=== PATIENT | female | born 1960 | race Asian ===

== ENCOUNTER → 2019-04-18 14:14 | Outpatient (CLI) | payer OTHER, SELFPAY ==
--- NOTE | 2019-04-18 | DI.CT.S_ITS ---
PROCEDURE: CT ABDOMEN PELVIS WO CON INDICATIONS: Urinary calculus TECHNIQUE: Noncontrast 5 mm thick sections acquired from the diaphragms to the symphysis. 5 mm thick coronal and sagittal reformats were then performed. For radiation dose reduction, the following was used: automated exposure control, adjustment of mA and/or kV according to patient size. COMPARISON: None. FINDINGS: Image quality: Excellent. Lung bases: Lung bases are clear. Heart size is normal. A peripherally calcified breast implant is noted partially visualized on the right. Only the inferior margin of this prosthesis is present in the apcyx-zx-fucd. Urinary system: Both kidneys are normal in size. No kidney stones on the right and there is only a punctate 1 mm calculus in an anterior calyx of the left mid kidney, nonobstructive. No hydronephrosis or perinephric fat stranding. Both ureters appear non-dilated throughout their expected courses. Bladder wall thickness is normal; no calcified bladder stones. Other solid organs: Liver is normal in size. Gallbladder has been previously resected. Pancreas is normal in contours. Spleen is normal in size. No adrenal nodules. Peritoneum and bowel: Unenhanced bowel loops demonstrate normal wall thickness and caliber. No free fluid or air. Nodes and vessels: No retroperitoneal or mesenteric adenopathy by size criteria. Aorta and inferior vena cava are normal in caliber. Abdominal wall: No ventral hernias. Pelvis: No free pelvic fluid. No inguinal hernias or adenopathy. Bones: No suspicious bony lesions. No vertebral body compression fractures. IMPRESSION: Punctate 1 mm nonobstructive left renal collecting system calculus, or the remainder of the ureters bilaterally and into the bladder no calculus or evidence of urinary tract obstruction is seen. A source of reported right-sided asymmetric pain is not identified. Incidental lobe made of the inferior margin of a right breast prosthesis. No adjacent inflammation is found. Dictated by: Kyler Montemayor M.D. on 04/18/2019 at 17:39 Approved by: Kyler Montemayor M.D. on 04/18/2019 at 17:41
== END ==
PROVIDERS: Visit Provider Urology
DX: N20.9 Urinary calculus, unspecified (principal); Z90.49 Acquired absence of other specified parts of digestive tract; Z98.82 Breast implant status
CPT/HCPCS: 74176

== ENCOUNTER → 2020-12-13 13:11 | Outpatient (CLI) | payer OTHER, SELFPAY ==
--- NOTE | 2020-12-13 | DI.MRI.S_ITS ---
PROCEDURE: MR CERVICAL SPINE WO CON INDICATIONS: Radiculopathy, cervical region TECHNIQUE: Noncontrast sagittal T1 spin echo and T2 fast spin echo, sagittal STIR, foraminal oblique sagittal T2 fast spin echo, and axial gradient echo or T2 fast spin echo through the cervical spine. COMPARISON: None. FINDINGS: Image quality: Excellent. Alignment and Curvature: Loss of normal cervical lordosis is present. Mild, grade 1 retrolisthesis C4 on C5 and C6 on C7. Bone Marrow: Marrow demonstrates normal overall signal. Mild reactive signal within the endplates adjacent to the C3-C4, C4-C5, and C6-C7 intervertebral discs. Spinal Cord: Visualized spinal cord has normal size and signal. No cerebellar tonsillar herniation. Paraspinous Soft Tissues: No paravertebral masses. Prevertebral soft tissues are normal in thickness. C2-C3: Mild disc desiccation and diffuse disc bulge with superimposed small central protrusion. Mild to moderate canal stenosis. Mild bilateral foraminal stenosis. C3-C4: Mild disc height loss and desiccation. Mild diffuse disc bulge. Mild facet and uncovertebral hypertrophy. Moderate canal stenosis. Mild bilateral foraminal stenosis. C4-C5: Moderate disc height loss and desiccation. Mild diffuse disc bulge. Mild facet and uncovertebral hypertrophy bilaterally. Moderate to severe canal stenosis. Minimal anterior cord flattening. Mild bilateral foraminal stenosis. C5-C6: Mild disc height loss and desiccation. Mild diffuse disc bulge. Mild left and moderate right facet and uncovertebral hypertrophy. Moderate canal stenosis. Moderate to severe right and moderate left foraminal stenosis. Mild right C6 nerve root compression. C6-C7: Moderate disc height loss and desiccation. Mild diffuse disc bulge. Moderate facet and uncovertebral hypertrophy bilaterally. Moderate canal stenosis. Severe right and moderate left foraminal stenosis. Right C7 nerve root compression. C7-T1: Mild disc height loss and desiccation. Mild facet and uncovertebral hypertrophy bilaterally. Mild canal stenosis. Mild bilateral foraminal stenosis. IMPRESSION: 1. Multilevel degenerative disc and facet disease, as well as uncovertebral hypertrophy. 2. Multilevel canal stenoses, worst at C4-C5 where there is minimal cord flattening. 3. Multilevel foraminal stenoses, worst at C5-C6 and C6-C7, where there is associated intraforaminal nerve root compression. Recommend correlation with clinical symptoms to ascertain relevance of this finding. Dictated by: Dmitry De León M.D. on 12/13/2020 at 15:24 Approved by: Dimtry De León M.D. on 12/13/2020 at 15:28
== END ==
PROVIDERS: PCP Internal Medicine; Referring Provider Internal Medicine; Visit Provider Internal Medicine
DX: M54.12 Radiculopathy, cervical region (principal); M50.31 Other cervical disc degeneration, high cervical region; M48.02 Spinal stenosis, cervical region
CPT/HCPCS: 72141

== ENCOUNTER → 2020-12-22 11:45 | Outpatient (CLI) | payer OTHER, SELFPAY ==
--- NOTE | 2020-12-22 | DI.MRI.S_ITS ---
PROCEDURE: MR LUMBAR SPINE WO CON INDICATIONS: Spinal stenosis, lumbar region with neurogenic cla TECHNIQUE: Noncontrast sagittal T1 spin echo and T2 fast echo, sagittal STIR, axial T1 and T2 fast spin echo through the lumbar spine. In cases with scoliosis, additional coronal T2 fast spin echo may be performed. COMPARISON: [facility], CT, CT ABDOMEN PELVIS WO CON, 04/18/2019, 14:24. FINDINGS: Image quality: Excellent. Alignment and Curvature: 5 lumbar type vertebral bodies are present by CT. Alignment is normal. Bone Marrow: Marrow is of normal overall signal. No acute vertebral body compression fractures. Minimal reactive signal within the endplates adjacent to the L2-L3, L3-L4, and L4-L5 intervertebral discs. Spinal Cord: Conus medullaris terminates at the upper L2 level. Visualized cord demonstrates normal signal and size. Paraspinous Soft Tissues: No paravertebral masses. T12-L1: Normal appearance. L1-L2: Minimal facet and ligamentum flavum hypertrophy. No significant canal, or foraminal stenosis. L2-L3: Minimal facet and ligamentum flavum hypertrophy. No significant canal stenosis. Mild bilateral foraminal stenosis. L3-L4: Mild disc desiccation and diffuse disc bulge. Mild facet and ligamentum flavum hypertrophy. Mild epidural lipomatosis. Mild canal stenosis. Mild bilateral foraminal stenosis. L4-L5: Mild disc desiccation and diffuse disc bulge. Moderate facet and ligamentum flavum hypertrophy. Mild epidural lipomatosis. Moderate canal stenosis. Mild bilateral foraminal stenosis. L5-S1: Mild disc desiccation and diffuse disc bulge with superimposed left paracentral protrusion. Moderate facet and ligamentum flavum hypertrophy. Moderate canal stenosis. Mild bilateral foraminal stenosis. Mild compression and posterior deviation of the left S1 nerve root within the lateral recess. IMPRESSION: 1. Multilevel degenerative disc and facet disease, as well as ligamentum flavum hypertrophy and epidural lipomatosis. 2. Multilevel canal stenoses, worst at L4-L5 and L5-S1 where there are moderate canal stenosis. 3. Mild compression and posterior deviation of the left S1 nerve root within the lateral recess at L5-S1. Recommend correlation with clinical symptoms to ascertain relevance of this finding. 4. Mild multilevel foraminal stenosis. Dictated by: Dmitry De León M.D. on 12/24/2020 at 9:27 Approved by: Dmitry De León M.D. on 12/24/2020 at 9:30
== END ==
PROVIDERS: PCP Internal Medicine; Referring Provider Physical Medicine & Rehabilitation Pain Medicine; Visit Provider Physical Medicine & Rehabilitation Pain Medicine
DX: M48.062 Spinal stenosis, lumbar region with neurogenic claudication (principal); M48.07 Spinal stenosis, lumbosacral region; M51.36 Other intervertebral disc degeneration, lumbar region; M51.37 Other intervertebral disc degeneration, lumbosacral region; E88.2 Lipomatosis, not elsewhere classified
CPT/HCPCS: 72148

== ENCOUNTER 2021-01-11 14:49 | Emergency (ER) | payer OTHER, SELFPAY ==
[2021-01-11 14:54] VITALS: BP 130/69; PULSE 78; RESP 18; TEMP 36.6; O2SAT 99; BMI 21.9
[2021-01-11] MEDS: ONDANSETRON 4 MG/2 ML INJ IV (15:16)
[2021-01-11 15:35] LABS: Add Manual Diff / Slide Review NO; Basophils Absolute Auto 100 /uL (0-100); Eosinophils Absolute Auto 100 /uL (0-450); Eosinophils Percent Auto 1.4 % (2-4); Hematocrit 36.8 % (36-46); Hemoglobin 12.6 g/dL (12.0-16.0); Lymphocytes Absolute Auto 2600 /uL (1100-4500); Lymphocytes Percent Auto 42.4 % (25-40); Mean Corpuscular HGB Conc 34.2 % (30-36); Mean Corpuscular Hemoglobin 32.3 PG (26-34); Mean Corpuscular Volume 94.4 fL (80-100); Monocytes Absolute Auto 300 /uL (0-900); Monocytes Percent Auto 5.5 % (3-14); Neutrophils Absolute Auto 3100 /uL (1500-7000); Neutrophils Percent Auto 49.7 % (50-75); Platelet Count 255 X10^3/uL (150-400); Red Cell Distribution Width 13.4 % (11.6-14.8); White Blood Cell Count 6.1 X10^3/uL (4.5-11.0)
--- NOTE | 2021-01-11 15:35 | ED.ABDPAIN ---
HPI - Abdominal Pain General Chief Complaint: Abdominal Pain Stated Complaint: STOMACH ISSUES, pain x5 days Time Seen by Provider: 01/11/21 15:34 Source: patient and family () Mode of arrival: Ambulatory Limitations: no limitations History of Present Illness HPI narrative: This is a 60-year-old female comes emergency department with complaint of abdominal discomfort. Patient states she has had about 5 days of abdominal pain. She also noticed some bright red blood in her stool. Patient states she has had this happen before and was told she had internal hemorrhoids so she was not concerned until she began to have periumbilical abdominal discomfort which has been constant without any resolution over the past 5 days. Patient does have a history of reflux and takes Dexilant which is usually helpful. She states she usually gets her reflux symptoms in her chest and about 30 minutes after she eats. She states this is actually not been symptomatic currently. She denies any fevers. She has felt a little clammy she has discomfort and had goose bumps. She has had some mild nausea but no vomiting. She has had normal bowel movements twice tingly she has noted that the stools have been dark but she does not describe them as melanotic. Patient denies any radiation of the pain to her back or elsewhere. She describes it as dull she states it is worse when she eats. She has tried some xiam-bre-hdedmvr medications without improvement including Pepto, her regular Dexilant and a medication from [place] for reflux. Patient states she has had a cholecystectomy and appendectomy. She takes Tricor and dexilant. She had an EGD and colonoscopy in the last year and was told that she had injury to the lining of her stomach and that she would need repeat evaluations as she is high risk to develop cancer. She was also told that she had elevated pancreatic enzymes in the past after having some abdominal discomfort and had imaging but has not had any additional follow up since that time. Related Data Previous Rx's Medication Instructions Recorded hyoscyamine sulfate 0.125 mg PO Q6H PRN #20 tab 01/11/21 sucralfate [Carafate] 1 g PO QAC 28 Days #84 tab 01/11/21 Allergies Allergy/AdvReac Type Severity Reaction Status Date / Time codeine Allergy Verified 01/11/21 14:54 Penicillins Allergy Verified 01/11/21 14:54 Review of Systems Review of Systems ROS Unobtainable: All systems reviewed & are unremarkable except as noted in HPI and below Patient History Surgical History (Updated 01/11/21 @ 16:11 by Vesta Harman DO) Hx of appendectomy Hx of cholecystectomy Social History (Updated 01/11/21 @ 16:11 by Vesta Harman DO) Smoking Status: Never smoker substance use type: does not use Smoking Status: Never smoker Substance Use Type: does not use Exam Narrative Exam Narrative: GENERAL: Alert and oriented x three, well-nourished female in mild distress. HEENT: Head normocephalic, atraumatic, EOMI, pupils reactive, face symmetric, moist mucous membranes NECK: Supple, full range of motion CARDIOVASCULAR: Regular rate and rhythm without murmurs, rubs or gallops. RESPIRATORY: Breath sounds equal bilaterally, no wheezes rales or rhonchi. ABDOMEN: Soft, mild periumbilical tenderness. Normoactive bowel sounds all 4 quadrants. No guarding or rebound, rigidity, no mass, no bruit or pulsatile mass. RN Josy Mcintyre as Senior Account Clerk. [place] negative stool occult, small internal hemorrhoid which is soft and non-tender with no BRB or melena and small amount of brownish stool. Rectum is non-tender on exam as well. : No CVA tenderness EXTREMITIES: Normal range of motion, no clubbing or edema. Neurovascularly intact NEUROLOGICAL: Cranial nerves II through XII grossly intact. Moving all extremities SKIN: Warm, dry, no petechiae, no rashes or lesions. Initial Vital Signs Initial Vital Signs: Vital Signs Temperature 97.9 F 01/11/21 14:54 Pulse Rate 78 01/11/21 14:54 Respiratory Rate 18 01/11/21 14:54 Blood Pressure 130/69 01/11/21 14:54 Pulse Oximetry 99 01/11/21 14:54 Course Orders Ordered: ED Orders 01/11/21 15:15 Complete Blood Count AUTO DIFF Stat Comprehensive Metabolic Panel Stat Lipase Stat Partial Thromboplastin Time Stat Prothrombin Time INR Stat 01/11/21 16:03 CT abdomen pelvis w con Stat Discontinued Medications Ondansetron HCl (Ondansetron 4 Mg/2 Ml Inj) 4 mg IV NOW ONE Stop: 01/11/21 15:04 Last Admin: 01/11/21 15:16 Dose: 4 mg Documented by: MMERKEL Pantoprazole Sodium (Pantoprazole 40 Mg Vial) 80 mg IV NOW ONE Stop: 01/11/21 16:46 Last Admin: 01/11/21 16:56 Dose: 80 mg Documented by: Vital Signs Vital signs: Vital Signs - 8 hr 01/11/21 14:54 Temperature 97.9 F Pulse Rate 78 Respiratory Rate 18 Blood Pressure 130/69 Pulse Oximetry 99 MDM - Abdominal Pain Lab Data Attestation: I reviewed the patient's lab results. Result diagrams: 01/11/21 15:15 01/11/21 15:15 Labs: Lab Results 01/11/21 01/11/21 01/11/21 Range/Units 15:15 15:15 15:15 WBC 6.1 (4.5-11.0) X10^3/uL RBC 3.90 L (4.0-5.2) X10^6/uL Hgb 12.6 (12.0-16.0) g/dL Hct 36.8 (36-46) % MCV 94.4 (80-100) fL MCH 32.3 (26-34) PG MCHC 34.2 (30-36) % RDW 13.4 (11.6-14.8) % Plt Count 255 (150-400) X10^3/uL Neut % (Auto) 49.7 L (50-75) % Lymph % (Auto) 42.4 H (25-40) % [place] % (Auto) 5.5 (3-14) % Eos % (Auto) 1.4 L (2-4) % Baso % (Auto) 1.0 (0-2) % Neut # (Auto) 3100 (0203-9556) /uL Lymph # (Auto) 2600 (2114-9308) /uL [place] # (Auto) 300 (0-900) /uL Eos # (Auto) 100 (0-450) /uL Baso # (Auto) 100 (0-100) /uL PT 10.1 (10.1-12.7) SECONDS INR 0.9 (0.9-1.3) APTT 31 (26.4-36.2) SECONDS Sodium 142 (137-145) mmol/L Potassium 4.0 (3.4-5.1) mmol/L Chloride 109 H (98-107) mmol/L Carbon Dioxide 25 (22-32) mmol/L BUN 16 (7-17) mg/dL Creatinine 0.46 L (0.52-1.04) mg/dL Estimated GFR > 60.0 (>60) mL/min BUN/Creatinine Ratio 34.8 H (6-22) Glucose 111 H (80-110) mg/dL Calcium 9.5 (8.4-10.2) mg/dL Total Bilirubin < 0.1 L (0.2-1.3) mg/dL AST 31 (14-36) IU/L ALT 19 (<35) IU/L Alkaline Phosphatase 56 (38-126) U/L Total Protein 7.2 (6.3-8.2) g/dL Albumin 4.5 (3.5-5.0) g/dL Globulin 2.7 (1.7-4.1) g/dL Albumin/Globulin Ratio 1.7 (1.0-2.8) Lipase 191 (23-300) U/L Point of care testing: Urine Dip Bedside Urine Glucose Negative Bedside Urine Bilirubin - Negative Bedside Urine Ketone - Negative Urine Specific [place] 1.020 Bedside Urine Occult Blood - Negative Bedside Urine pH 6.5 Bedside Urine Protein - Negative Bedside Urine Urobilinogen - Negative Bedside Urine Nitrite - Negative Bedside Urine Leukocytes - Negative Esterase Imaging Data CT scan - abdomen/pelvis: Radiologist's Impression: [address] [id number] Scan ReportSigned Patient: Freddy BroussardMR#: [id number]: [id number]:[id number]/Sex: 60 / FDate of Service: 01/11/21Loc: EDAccession Number: [id number] Procedure: CT abdomen pelvis w con Ordering Provider: Vesta Harman D.O. PROCEDURE: CT ABDOMEN PELVIS W CON INDICATIONS: abd pain, BFB in stool. TECHNIQUE: After the administration of intravenous contrast, 5 mm thick sections acquired from the diaphragm to the symphysis. 5 mm coronal and sagittal reformats were acquired. For radiation dose reduction, the following was used: automated exposure control, adjustment of mA and/or kV according to patient size. COMPARISON: [facility], CT, CT ABDOMEN PELVIS WO CON, 04/18/2019, 14:24. FINDINGS: Image quality: Excellent. ABDOMEN: Lung bases: Lung bases are clear. Heart size is normal. Breast implants. Solid organs: Liver is normal in size and enhancement. Small benign cysts. Gallbladder is surgically absent. Biliary system is non dilated. Pancreas enhances normally. Spleen is normal in size and enhancement. No adrenal nodules. Kidneys demonstrate normal size and enhancement, without hydronephrosis. Small nonobstructing kidney stones bilaterally. Peritoneum and bowel: Stomach is prominent. There is increased conspicuity of the gastric mucosa. No bowel obstruction. The appendix is absent. No free fluid or air. Nodes and vessels: No retroperitoneal or mesenteric adenopathy by size criteria. Aorta and inferior vena cava are normal in size. Miscellaneous: No ventral hernias. PELVIS: Genitourinary: Bladder wall thickness is normal. Adnexal clips. Prominent pelvic veins. Anteverted uterus. Miscellaneous: No inguinal hernias or adenopathy. Bones: No suspicious bony lesions. No vertebral body compression fractures. IMPRESSION: 1. Question of increased rectal mucosal enhancement. This could be seen in proctitis. 2. Gastric mucosal enhancement. Findings concerning for gastritis. 3. No small bowel obstruction. Consider further endoscopic evaluation. Dictated by: Biju Gagnon M.D. on 01/11/2021 at 16:33 Approved by: Biju Gagnon M.D. on 01/11/2021 at 16:42 MDM Narrative Medical decision making narrative: This is a pleasant 60-year-old female with complaint of stomach/abdominal discomfort for the past 5 days. Patient did note some bright red blood several times in the past and has been told she has internal hemorrhoids. Patient labs do not show any major abnormalities today. Her vital signs are stable. Stool occult on digital rectal exam is negative. Patient has 1 small hemorrhoid noted but is not actively bleeding. Patient's CT does show changes to the gastric mucosa as well as to with the rectal mucosa. After further discussion with the patient she has had anal fissures, as well as rectal discomfort intermittently in the past. She has discussed this with gastroenterology but felt very uncomfortable during the discussion which she related there were several different factors causing this. Um we did discuss that she would benefit from follow-up and was given some additional options if she felt more comfortable with a different GI and encouraged to follow up as she could potentially have ulcerative colitis or Crohn's although we discussed there is a wide differential. She has also been told she needs repeat EGDs because of the scarring in her stomach is high risk for cancer. This is more the area that she is having discomfort today so she is given a prescription for Carafate. She has also been taking a medication from [facility] which she has found helpful and the active drug is hyoscyamine. Patient was counseled at length and she feels comfortable with this plan. Discharge Plan Departure Patient Disposition: Home Clinical Impression: Abdominal pain, Proctitis Activity Restrictions/Additional Instructions: Follow up with your physician in the next week for recheck. Call Thursday morning for an appointment. I would recommend follow up detention with gastroenterology for recheck. If you do not have a local implementation project coordinator available, a referral has been included in your paperwork. Discuss your past symptoms including rectal fissures and pain and intermittent diarrhea and the changes noted on your prior EGD, you have some symptoms consistent with ulcerative colitis or crohns and they can more fully evaluate you to decide if you need further workup. Your imaging today shows changes to the rectal mucosa which may be a proctitis and you would likely benefit from repeat colonscopy after your symptoms have improved. There are also changes in the gastric mucosa which may be the same changes seen on your last EGD and should be followed up. Continue your dexilant. Hyoscyamine is the [place] version of the medication you have been taking. You may try carafate as prescribed. This medication helps to protect the lining of the stomach so that it can heal. Please return for fevers greater than 100.4 F, rapidly worsening abdominal, back flank pain, persistent vomiting, worsening black or bloody stools, lightheadedness or passing out, new chest pain or shortness of breath new or concerning symptoms. Prescriptions: New hyoscyamine sulfate 0.125 mg tablet,disintegrating 0.125 mg PO Q6H PRN (Reason: dyspepsia) Qty: 20 RF: 0 sucralfate [Carafate] 1 gram tablet 1 g PO QAC 28 Days Qty: 84 RF: 0 Referrals: Lucita Woodward MD [Non-Staff] - Kandace Groves MD [Primary Care Provider] - Musa Dewey MD [Physician] -
[2021-01-11 15:41] LABS: INR 0.9 (0.9-1.3); Prothrombin Time 10.1 SECONDS (10.1-12.7)
[2021-01-11 15:44] LABS: PTT Partial Thromboplastin Tim 31 SECONDS (26.4-36.2)
[2021-01-11 15:51] LABS: Alanine Aminotransferase 19 IU/L (<35); Albumin 4.5 g/dL (3.5-5.0); Albumin Globulin Ratio 1.7 (1.0-2.8); Alkaline Phosphatase 56 U/L (38-126); Aspartate Aminotransferase 31 IU/L (14-36); BUN Creatinine Ratio 34.8 (6-22); Blood Urea Nitrogen 16 mg/dL (7-17); Calcium 9.5 mg/dL (8.4-10.2); Carbon Dioxide 25 mmol/L (22-32); Chloride 109 mmol/L (98-107); Estimated Glomerular Filt Rate > 60.0 mL/min (>60); Globulin 2.7 g/dL (1.7-4.1); Glucose 111 mg/dL (80-110); HEMOLYSIS < 15 (0-50); Lipase 191 U/L (23-300); Sodium 142 mmol/L (137-145); Total Protein 7.2 g/dL (6.3-8.2)
[2021-01-11 15:52] LABS: Bilirubin Total < 0.1 mg/dL (0.2-1.3)
--- NOTE | 2021-01-11 16:03 | DI.CT.S_ITS ---
PROCEDURE: CT ABDOMEN PELVIS W CON INDICATIONS: abd pain, BFB in stool. TECHNIQUE: After the administration of intravenous contrast, 5 mm thick sections acquired from the diaphragm to the symphysis. 5 mm coronal and sagittal reformats were acquired. For radiation dose reduction, the following was used: automated exposure control, adjustment of mA and/or kV according to patient size. COMPARISON: [facility], CT, CT ABDOMEN PELVIS WO CON, 04/18/2019, 14:24. FINDINGS: Image quality: Excellent. ABDOMEN: Lung bases: Lung bases are clear. Heart size is normal. Breast implants. Solid organs: Liver is normal in size and enhancement. Small benign cysts. Gallbladder is surgically absent. Biliary system is non dilated. Pancreas enhances normally. Spleen is normal in size and enhancement. No adrenal nodules. Kidneys demonstrate normal size and enhancement, without hydronephrosis. Small nonobstructing kidney stones bilaterally. Peritoneum and bowel: Stomach is prominent. There is increased conspicuity of the gastric mucosa. No bowel obstruction. The appendix is absent. No free fluid or air. Nodes and vessels: No retroperitoneal or mesenteric adenopathy by size criteria. Aorta and inferior vena cava are normal in size. Miscellaneous: No ventral hernias. PELVIS: Genitourinary: Bladder wall thickness is normal. Adnexal clips. Prominent pelvic veins. Anteverted uterus. Miscellaneous: No inguinal hernias or adenopathy. Bones: No suspicious bony lesions. No vertebral body compression fractures. IMPRESSION: 1. Question of increased rectal mucosal enhancement. This could be seen in proctitis. 2. Gastric mucosal enhancement. Findings concerning for gastritis. 3. No small bowel obstruction. Consider further endoscopic evaluation. Dictated by: Biju Gagnon M.D. on 01/11/2021 at 16:33 Approved by: Biju aGgnon M.D. on 01/11/2021 at 16:42
[2021-01-11] MEDS: PANTOPRAZOLE 40 MG VIAL 80 MG IV (16:56)
[2021-01-11 17:46] VITALS: BP 122/70; PULSE 70; RESP 15; O2SAT 99
== END 2021-01-11 17:51 | disposition home or self-care (01) ==
PROVIDERS: Emergency Medicine; Emergency Provider Emergency Medicine; PCP Internal Medicine
DX: K62.89 Other specified diseases of anus and rectum (principal); R10.9 Unspecified abdominal pain
CPT/HCPCS: 36415; 74177; 80053; 81003; 83690; 85025; 85610; 85730; 96374; 96375; 99284; C9113; J2405

== ENCOUNTER → 2021-06-25 14:19 | Outpatient (CLI) | payer OTHER, SELFPAY ==
--- NOTE | 2021-06-25 14:20 | DI.MG.S_ITS ---
BILATERAL DIGITAL SCREENING MAMMOGRAM 3D/2D WITH CAD WITH AUGMENTATION: 06/25/2021 CLINICAL: Routine screening. Family history of breast cancer. Comparison is made to exams dated: 05/23/2020 mammogram - [facility], 05/19/2019 mammogram - [facility], and 04/14/2018 mammogram - [facility]. The tissue of both breasts is heterogeneously dense. This may lower the sensitivity of mammography. Current study was also evaluated with a Computer Aided Detection (CAD) system. No significant masses, calcifications, or other findings are seen in either breast. There has been no significant interval change. IMPRESSION: NEGATIVE There is no mammographic evidence of malignancy. A 1 year screening mammogram is recommended. This exam was interpreted at Station ID: [id number]. NOTE: For mammograms, a report in lay terms will be sent to the patient. Approximately 15% of breast malignancies will not be visualized mammographically. In the management of a palpable breast mass, a negative mammogram must not discourage biopsy of a clinically suspicious lesion. Electronically Signed By: Jermaine Goff M.D., jr/wei:06/25/2021 14:54:09 letter sent: Normal Exam ACR BI-RADS Category 1: Negative [id number]
== END ==
PROVIDERS: PCP Internal Medicine; Referring Provider Internal Medicine; Visit Provider Internal Medicine
DX: Z12.31 Encounter for screening mammogram for malignant neoplasm of breast (principal); Z80.3 Family history of malignant neoplasm of breast
CPT/HCPCS: 77063; 77067

== ENCOUNTER 2022-03-16 01:33 | Inpatient (IN) | payer OTHER, SELFPAY ==
[2022-03-16] VITALS (24 sets, daily range): BP systolic 89–136; BP diastolic 41–66; PULSE 56–78; RESP 14–18; TEMP 36.3–37.1; O2SAT 92–99; BMI 21.9
--- NOTE | 2022-03-16 01:59 | DI.CT.S_ITS ---
PROCEDURE: CT KIDNEY URETER BLADDER (KUB) INDICATIONS: R flank pain evl for stone TECHNIQUE: Axial sections were acquired from the lung bases to the pubic symphysis. Coronal and sagittal reformats were performed. For radiation dose reduction, the following was used: automated exposure control, adjustment of mA and/or kV according to patient size. COMPARISON: None. FINDINGS: Image quality: Excellent. Lung bases: Lung bases are clear. Heart size is normal. Solid organs: Liver: The liver has no mass or intrahepatic biliary ductal dilatation. The portal vein and hepatic veins are patent. Biliary: The gallbladder has no gallstones, pericholecystic fluid, gallbladder wall thickening, or surrounding inflammatory change. Pancreas: The pancreas has no mass or ductal dilatation. There is no surrounding inflammation. Spleen: Normal size. There are no masses. Adrenals: No hypertrophy or nodules. Kidneys: There is a nonobstructing calculus at the lower pole of the left kidney. Moderate right sided hydronephrosis. A stone in the right UVJ measures 4 mm. Few punctate nonobstructing right renal calculi are also present No solid mass. No cystic mass. Peritoneum and bowel: The distal esophagus and stomach are normal. The small bowel has a normal caliber and appearance. The terminal ileum is normal. The large bowel has a normal caliber and appearance. The appendix is normal. No free fluid or air. Nodes and vessels: No retroperitoneal or mesenteric adenopathy by size criteria. Aorta and inferior vena cava are normal in size. Miscellaneous: No abdominal wall mass or hernia. PELVIS: Genitourinary: The bladder has no wall thickening or mass. No bladder calcifications. Bones: No suspicious bony lesions. No vertebral body compression fractures. IMPRESSION: 1. Moderate right-sided hydroureteronephrosis with a 4 mm calculus at the right UVJ. 2. Additional nonobstructing renal calculi bilaterally. Comment: Final report is concordant with preliminary interpretation by [facility] Dictated by: Thai Bryan M.D. on 03/16/2022 at 7:40 Approved by: Thai Bryan M.D. on 03/16/2022 at 7:42
[2022-03-16 02:00] LABS: Add Manual Diff / Slide Review NO; Basophils Absolute Auto 100 /uL (0-100); Basophils Percent Auto 1.9 % (0-2); Eosinophils Absolute Auto 100 /uL (0-450); Hematocrit 36.4 % (36-46); Hemoglobin 12.1 g/dL (12.0-16.0); Lymphocytes Absolute Auto 3300 /uL (1100-4500); Lymphocytes Percent Auto 53.6 % (25-40); Mean Corpuscular HGB Conc 33.2 % (30-36); Mean Corpuscular Hemoglobin 31.5 PG (26-34); Mean Corpuscular Volume 94.8 fL (80-100); Monocytes Absolute Auto 500 /uL (0-900); Monocytes Percent Auto 7.6 % (3-14); Neutrophils Absolute Auto 2200 /uL (1500-7000); Neutrophils Percent Auto 34.9 % (50-75); Platelet Count 237 X10^3/uL (150-400); Red Blood Cell Count 3.84 X10^6/uL (4.0-5.2); Red Cell Distribution Width 13.2 % (11.6-14.8); White Blood Cell Count 6.2 X10^3/uL (4.5-11.0)
--- NOTE | 2022-03-16 02:00 | ED_ITS ---
HPI - General Adult <Hubert Schulte DO - Last Filed: 03/16/22 18:58> General Chief complaint: Abdominal Pain Stated complaint: Lower RT. abd.pain Time Seen by Provider: 03/16/22 01:44 Source: patient and family Mode of arrival: Wheelchair Limitations: no limitations History of Present Illness HPI narrative: Patient is a 34-year-old female. Who is here for evaluation of right sided abdomen and flank discomfort. She started have some discomfort last evening before she went to bed but it woke her from sleep. She is never had symptoms like this in the past. Pain has been constant. No change with urination or palpation. Has not had bowel movements the onset of symptoms is also having some nausea and vomiting. Has not tried anything for the symptoms prior to arrival. Related Data Home Medications Medication Instructions Recorded Confirmed allopurinol 100 mg tablet 100 tab PO Q OTHER DAY 03/16/22 03/16/22 dexlansoprazole 60 mg 60 mg PO DAILY 03/16/22 03/16/22 capsule,biphase delayed release (Dexilant) fenofibrate nanocrystallized 48 mg 40 tab PO DAILY 03/16/22 03/16/22 tablet (Tricor) levothyroxine 75 mcg tablet 75 tab PO DAILY 03/16/22 03/16/22 (Synthroid) Allergies Allergy/AdvReac Type Severity Reaction Status Date / Time codeine Allergy Verified 01/11/21 14:54 Penicillins Allergy Verified 01/11/21 14:54 Review of Systems <Hubert Schulte DO - Last Filed: 03/16/22 18:58> Constitutional Constitutional: Denies fever(s) Gastrointestinal Gastrointestinal: Reports system reviewed and no additional complaints, except as documented Genitourinary Genitourinary: Reports system reviewed and no additional complaints, except as documented Musculoskeletal Musculoskeletal: Reports system reviewed and no additional complaints, except as documented Integumentary/Breasts Skin/Breast: Reports system reviewed and no additional complaints, except as documented Hematologic/Lymphatic On Anticoagulants: No Patient History <Hubert Schulte DO - Last Filed: 03/16/22 18:58> Surgical History Hx of appendectomy Hx of cholecystectomy Family History (Updated 03/16/22 @ 14:33 by Rylan Thornton DO) Sister Kidney stone Mother Heart disease Father Parkinson disease Social History household members: spouse Smoking Status: Never smoker substance use type: does not use Smoking Status: Never smoker Substance Use Type: does not use Exam <Hubert Schulte DO - Last Filed: 03/16/22 18:58> Initial Vital Signs Initial Vital Signs: Vital Signs Temperature 97.7 F 03/16/22 01:40 Pulse Rate 67 03/16/22 01:40 Respiratory Rate 17 03/16/22 01:40 Blood Pressure 127/62 03/16/22 01:40 Pulse Oximetry 99 03/16/22 01:40 Oxygen Delivery Method 03/16/22 01:40 Const General: cooperative HENMT Head: normal to inspection Resp Effort & Inspection: normal respiratory effort Cardio Rate: regular rate GI Inspection: normal to inspection Skin General: no rashes or lesions noted Neuro General: patient alert, patient awake and moves all extremities Extrem General: normal to inspection and capillary refill normal Psych Appearance: grossly normal and well kempt <Vesta Harman DO - Last Filed: 03/17/22 12:00> Initial Vital Signs Initial Vital Signs: Vital Signs Temperature 97.7 F 03/16/22 01:40 Pulse Rate 67 03/16/22 01:40 Respiratory Rate 17 03/16/22 01:40 Blood Pressure 127/62 03/16/22 01:40 Pulse Oximetry 99 03/16/22 01:40 Oxygen Delivery Method 03/16/22 01:40 Course <Hubert Schulte DO - Last Filed: 03/16/22 18:58> Orders Ordered: Belladonna Alkaloids/Opium (Belladonna/Opium Suppositories) 1 each CA Q6HR ISABELA Last Admin: 03/17/22 06:17 Dose: 1 each Documented By: Admin: 03/17/22 00:46 Dose: 1 each Documented By: BEVERLY Fenofibrate (Fenofibrate, Micronized 67 Mg Capsule) 67 mg PO DAILY ISABELA Hydromorphone HCl (Hydromorphone 0.5 Mg Inj) 0.5 mg IV Q3H PRN PRN Reason: Pain, Severe (7-10) Last Admin: 03/16/22 11:45 Dose: 0.5 mg Documented By: SUMAN Lactated Ringer's (Lactated Ringers) 1,000 mls @ 100 mls/hr IV CONT ON LICENSE OF [facility] Last Admin: 03/17/22 06:59 Dose: 100 mls/hr Documented By: Infusion: 03/17/22 06:40 Dose: 100 mls/hr Documented By: Admin: 03/16/22 20:40 Dose: 100 mls/hr Documented By: Infusion: 03/16/22 20:03 Dose: 100 mls/hr Documented By: Admin: 03/16/22 10:03 Dose: 100 mls/hr Documented By: SUMAN Ketorolac Tromethamine (Ketorolac 30 Mg/Ml Vial) 30 mg IV Q6H PRN PRN Reason: Pain, Moderate (4-6) Stop: 03/19/22 09:13 Last Admin: 03/16/22 10:28 Dose: 30 mg Documented By: RAMONITA Levothyroxine Sodium (Levothyroxine 75 Mcg Tablet) 75 mcg PO 0600 ON LICENSE OF [facility] Last Admin: 03/17/22 06:18 Dose: 75 mcg Documented By: BEVERLY Metoclopramide HCl (Metoclopramide 10 Mg/2 Ml Inj) 10 mg IV Q6HR PRN PRN Reason: Nausea And Vomiting Ondansetron HCl (Ondansetron 4 Mg/2 Ml Inj) 4 mg IV Q4HR PRN PRN Reason: Nausea And Vomiting Pantoprazole Sodium (Pantoprazole Dr 40 Mg Tablet) 40 mg PO 0700 ON LICENSE OF [facility] Last Admin: 03/17/22 06:18 Dose: 40 mg Documented By: BEVERLY Tamsulosin HCl (Tamsulosin 0.4 Mg Capsule) 0.4 mg PO BEDTIME ON LICENSE OF [facility] Last Admin: 03/16/22 21:59 Dose: 0.4 mg Documented By: BEVERLY Discontinued Medications Acetaminophen (Acetaminophen 1,000 Mg/100 Ml) 0 mg IV NOW ONE Stop: 03/16/22 07:28 Last Admin: 03/16/22 08:27 Dose: 1,000 mg Documented By: KHOI Hydrocodone Bitart/Acetaminophen (Hydrocodone/Acet 5/325 Prepack) 1 bottle MISC SEEINSTR ONE Stop: 03/16/22 07:15 Last Admin: 03/16/22 10:29 Dose: Not Given Documented By: RAMONITA Belladonna Alkaloids/Opium (Belladonna/Opium Suppositories) 1 each CA NOW ONE Stop: 03/16/22 07:26 Last Admin: 03/16/22 08:27 Dose: 1 each Documented By: KHOI Diphenhydramine HCl (Diphenhydramine 50 Mg/Ml Vial) 25 mg IV NOW ONE Stop: 03/16/22 08:54 Last Admin: 03/16/22 09:00 Dose: 25 mg Documented By: KHOI Diphenhydramine HCl (Diphenhydramine 50 Mg/Ml Vial) 25 mg IV Q6HR PRN PRN Reason: Itching Last Admin: 03/16/22 11:45 Dose: 25 mg Documented By: SUMAN Hydromorphone HCl (Hydromorphone 0.5 Mg Inj) 0.5 mg IV NOW ONE Stop: 03/16/22 04:24 Last Admin: 03/16/22 04:26 Dose: 0.5 mg Documented By: RADHA Hydromorphone HCl (Hydromorphone 0.5 Mg Inj) 0.5 mg IV NOW ONE Stop: 03/16/22 06:45 Last Admin: 03/16/22 06:49 Dose: 0.5 mg Documented By: RADHA Sodium Chloride (Normal Saline 0.9%) 1,000 mls @ 1,000 mls/hr IV BOLUS ONE Stop: 03/16/22 02:44 Last Infusion: 03/16/22 03:47 Dose: 0 mls/hr Documented By: Admin: 03/16/22 02:08 Dose: 1,000 mls/hr Documented By: SENA Lidocaine HCl 4.1 ml/ Sodium (Chloride) 54.1 mls @ 324.6 mls/hr IV NOW ONE Stop: 03/16/22 05:28 Last Infusion: 03/16/22 06:05 Dose: 0 mls/hr Documented By: Admin: 03/16/22 05:51 Dose: 324.6 mls/hr Documented By: RADHA Ketorolac Tromethamine (Ketorolac 30 Mg/Ml Vial) 30 mg IV NOW ONE Stop: 03/16/22 02:24 Last Admin: 03/16/22 02:31 Dose: 30 mg Documented By: SENA Morphine Sulfate (Morphine 4 Mg/Ml Inj) 4 mg IV NOW ONE Stop: 03/16/22 02:02 Last Admin: 03/16/22 02:09 Dose: 4 mg Documented By: SENA Morphine Sulfate (Morphine 4 Mg/Ml Inj) 4 mg IV NOW ONE Stop: 03/16/22 04:01 Last Admin: 03/16/22 04:43 Dose: Not Given Documented By: RADHA Ondansetron HCl (Ondansetron 4 Mg/2 Ml Inj) 4 mg IV NOW ONE Stop: 03/16/22 05:17 Last Admin: 03/16/22 05:26 Dose: 4 mg Documented By: RADHA Ondansetron HCl (Ondansetron 4 Mg Odt Prepack) 1 bottle MISC SEEINSTR ONE Stop: 03/16/22 07:15 Last Admin: 03/16/22 10:29 Dose: Not Given Documented By: RAMONITA Ondansetron HCl (Ondansetron 4 Mg/2 Ml Inj) 4 mg IV NOW ONE Stop: 03/16/22 07:30 Last Admin: 03/16/22 07:43 Dose: 4 mg Documented By: KHOI Pantoprazole Sodium (Pantoprazole Dr 20 Mg Tablet) 40 mg PO NOW ONE Stop: 03/16/22 23:44 Last Admin: 03/17/22 00:45 Dose: 40 mg Documented By: BEVERLY Vital Signs Vital signs: Vital Signs - 8 hr 03/16/22 01:40 03/16/22 04:30 03/16/22 05:00 Temperature 97.7 F Pulse Rate 67 68 77 Respiratory Rate 17 18 18 Blood Pressure 127/62 Pulse Oximetry 99 96 94 Oxygen Delivery Method Room Air 03/16/22 05:30 03/16/22 06:00 03/16/22 07:00 Temperature Pulse Rate 78 65 70 Respiratory Rate 18 18 Blood Pressure Pulse Oximetry 98 94 96 Oxygen Delivery Method 03/16/22 07:01 03/16/22 07:01 03/16/22 07:30 Temperature Pulse Rate 62 Respiratory Rate Blood Pressure 114/59 L 116/57 L Pulse Oximetry 95 Oxygen Delivery Method 03/16/22 07:30 03/16/22 08:00 03/16/22 08:00 Temperature Pulse Rate 64 60 Respiratory Rate Blood Pressure 110/56 L Pulse Oximetry 94 96 Oxygen Delivery Method 03/16/22 08:30 03/16/22 09:00 03/16/22 09:00 Temperature Pulse Rate 61 74 Respiratory Rate Blood Pressure 136/65 Pulse Oximetry 97 95 Oxygen Delivery Method <Vesta Harman DO - Last Filed: 03/17/22 12:00> Orders Ordered: Belladonna Alkaloids/Opium (Belladonna/Opium Suppositories) 1 each CA Q6HR ON LICENSE OF [facility] Last Admin: 03/17/22 06:17 Dose: 1 each Documented By: Admin: 03/17/22 00:46 Dose: 1 each Documented By: BEVERLY Fenofibrate (Fenofibrate, Micronized 67 Mg Capsule) 67 mg PO DAILY ON LICENSE OF [facility] Hydromorphone HCl (Hydromorphone 0.5 Mg Inj) 0.5 mg IV Q3H PRN PRN Reason: Pain, Severe (7-10) Last Admin: 03/16/22 11:45 Dose: 0.5 mg Documented By: SUMAN Lactated Ringer's (Lactated Ringers) 1,000 mls @ 100 mls/hr IV CONT ON LICENSE OF [facility] Last Admin: 03/17/22 06:59 Dose: 100 mls/hr Documented By: Infusion: 03/17/22 06:40 Dose: 100 mls/hr Documented By: Admin: 03/16/22 20:40 Dose: 100 mls/hr Documented By: Infusion: 03/16/22 20:03 Dose: 100 mls/hr Documented By: Admin: 03/16/22 10:03 Dose: 100 mls/hr Documented By: SUMAN Ketorolac Tromethamine (Ketorolac 30 Mg/Ml Vial) 30 mg IV Q6H PRN PRN Reason: Pain, Moderate (4-6) Stop: 03/19/22 09:13 Last Admin: 03/16/22 10:28 Dose: 30 mg Documented By: RAMONITA Levothyroxine Sodium (Levothyroxine 75 Mcg Tablet) 75 mcg PO 0600 ON LICENSE OF [facility] Last Admin: 03/17/22 06:18 Dose: 75 mcg Documented By: BEVERLY Metoclopramide HCl (Metoclopramide 10 Mg/2 Ml Inj) 10 mg IV Q6HR PRN PRN Reason: Nausea And Vomiting Ondansetron HCl (Ondansetron 4 Mg/2 Ml Inj) 4 mg IV Q4HR PRN PRN Reason: Nausea And Vomiting Pantoprazole Sodium (Pantoprazole Dr 40 Mg Tablet) 40 mg PO 0700 ON LICENSE OF [facility] Last Admin: 03/17/22 06:18 Dose: 40 mg Documented By: BEVERLY Tamsulosin HCl (Tamsulosin 0.4 Mg Capsule) 0.4 mg PO BEDTIME ON LICENSE OF [facility] Last Admin: 03/16/22 21:59 Dose: 0.4 mg Documented By: BEVERLY Discontinued Medications Acetaminophen (Acetaminophen 1,000 Mg/100 Ml) 0 mg IV NOW ONE Stop: 03/16/22 07:28 Last Admin: 03/16/22 08:27 Dose: 1,000 mg Documented By: KHOI Hydrocodone Bitart/Acetaminophen (Hydrocodone/Acet 5/325 Prepack) 1 bottle MISC SEEINSTR ONE Stop: 03/16/22 07:15 Last Admin: 03/16/22 10:29 Dose: Not Given Documented By: RAMONITA Belladonna Alkaloids/Opium (Belladonna/Opium Suppositories) 1 each CA NOW ONE Stop: 03/16/22 07:26 Last Admin: 03/16/22 08:27 Dose: 1 each Documented By: KHOI Diphenhydramine HCl (Diphenhydramine 50 Mg/Ml Vial) 25 mg IV NOW ONE Stop: 03/16/22 08:54 Last Admin: 03/16/22 09:00 Dose: 25 mg Documented By: KHOI Diphenhydramine HCl (Diphenhydramine 50 Mg/Ml Vial) 25 mg IV Q6HR PRN PRN Reason: Itching Last Admin: 03/16/22 11:45 Dose: 25 mg Documented By: SUMAN Hydromorphone HCl (Hydromorphone 0.5 Mg Inj) 0.5 mg IV NOW ONE Stop: 03/16/22 04:24 Last Admin: 03/16/22 04:26 Dose: 0.5 mg Documented By: RADHA Hydromorphone HCl (Hydromorphone 0.5 Mg Inj) 0.5 mg IV NOW ONE Stop: 03/16/22 06:45 Last Admin: 03/16/22 06:49 Dose: 0.5 mg Documented By: RADHA Sodium Chloride (Normal Saline 0.9%) 1,000 mls @ 1,000 mls/hr IV BOLUS ONE Stop: 03/16/22 02:44 Last Infusion: 03/16/22 03:47 Dose: 0 mls/hr Documented By: Admin: 03/16/22 02:08 Dose: 1,000 mls/hr Documented By: SENA Lidocaine HCl 4.1 ml/ Sodium (Chloride) 54.1 mls @ 324.6 mls/hr IV NOW ONE Stop: 03/16/22 05:28 Last Infusion: 03/16/22 06:05 Dose: 0 mls/hr Documented By: Admin: 03/16/22 05:51 Dose: 324.6 mls/hr Documented By: RADHA Ketorolac Tromethamine (Ketorolac 30 Mg/Ml Vial) 30 mg IV NOW ONE Stop: 03/16/22 02:24 Last Admin: 03/16/22 02:31 Dose: 30 mg Documented By: SENA Morphine Sulfate (Morphine 4 Mg/Ml Inj) 4 mg IV NOW ONE Stop: 03/16/22 02:02 Last Admin: 03/16/22 02:09 Dose: 4 mg Documented By: SENA Morphine Sulfate (Morphine 4 Mg/Ml Inj) 4 mg IV NOW ONE Stop: 03/16/22 04:01 Last Admin: 03/16/22 04:43 Dose: Not Given Documented By: RADHA Ondansetron HCl (Ondansetron 4 Mg/2 Ml Inj) 4 mg IV NOW ONE Stop: 03/16/22 05:17 Last Admin: 03/16/22 05:26 Dose: 4 mg Documented By: RADHA Ondansetron HCl (Ondansetron 4 Mg Odt Prepack) 1 bottle MISC SEEINSTR ONE Stop: 03/16/22 07:15 Last Admin: 03/16/22 10:29 Dose: Not Given Documented By: RAMONITA Ondansetron HCl (Ondansetron 4 Mg/2 Ml Inj) 4 mg IV NOW ONE Stop: 03/16/22 07:30 Last Admin: 03/16/22 07:43 Dose: 4 mg Documented By: KHOI Pantoprazole Sodium (Pantoprazole Dr 20 Mg Tablet) 40 mg PO NOW ONE Stop: 03/16/22 23:44 Last Admin: 03/17/22 00:45 Dose: 40 mg Documented By: BEVERLY Reevaluation(s) Reevaluation #1: Patient seen and evaluated independently by myself after signed out from Dr. Schulte. Patient had sudden onset of flank pain has a 4 mm UVJ stone with no signs of infection, no white count or signs of sepsis, renal failure or other cause of pain. Patient has had persistent pain which has been intractable and persistent vomiting after multiple medications without any improvement. Patient has had narcotics, Toradol, lidocaine and IV Tylenol without success. Dr. Schulte had spoke with Dr. Jennings who suggested the IV Tylenol and belladonna which has been unsuccessful. Dr. Jennings was being re-contacted and asks that we admit to medicine. Time: 08:56 Reevaluation #2: Dr. Thornton, hospitalist accepts for observation. Consultations Consultation #1: Dr. Brand, urology. Time: 08:57 Vital Signs Vital signs: Vital Signs - 8 hr 03/16/22 01:40 03/16/22 04:30 03/16/22 05:00 Temperature 97.7 F Pulse Rate 67 68 77 Respiratory Rate 17 18 18 Blood Pressure 127/62 Pulse Oximetry 99 96 94 Oxygen Delivery Method Room Air 03/16/22 05:30 03/16/22 06:00 03/16/22 07:00 Temperature Pulse Rate 78 65 70 Respiratory Rate 18 18 Blood Pressure Pulse Oximetry 98 94 96 Oxygen Delivery Method 03/16/22 07:01 03/16/22 07:01 03/16/22 07:30 Temperature Pulse Rate 62 Respiratory Rate Blood Pressure 114/59 L 116/57 L Pulse Oximetry 95 Oxygen Delivery Method 03/16/22 07:30 03/16/22 08:00 03/16/22 08:00 Temperature Pulse Rate 64 60 Respiratory Rate Blood Pressure 110/56 L Pulse Oximetry 94 96 Oxygen Delivery Method 03/16/22 08:30 03/16/22 09:00 03/16/22 09:00 Temperature Pulse Rate 61 74 Respiratory Rate Blood Pressure 136/65 Pulse Oximetry 97 95 Oxygen Delivery Method Medical Decision Making <Hubert Schulte, DO - Last Filed: 03/16/22 18:58> Lab Data Lab results reviewed: Yes I reviewed the patient's lab results. Result diagrams: 03/17/22 06:35 03/17/22 06:35 Labs: Lab Results 03/16/22 03/16/22 03/16/22 Range/Units 01:50 01:50 01:50 WBC 6.2 (4.5-11.0) X10^3/uL RBC 3.84 L (4.0-5.2) X10^6/uL Hgb 12.1 (12.0-16.0) g/dL Hct 36.4 (36-46) % MCV 94.8 (80-100) fL MCH 31.5 (26-34) PG MCHC 33.2 (30-36) % RDW 13.2 (11.6-14.8) % Plt Count 237 (150-400) X10^3/uL Neut % (Auto) 34.9 L (50-75) % Lymph % (Auto) 53.6 H (25-40) % Saline % (Auto) 7.6 (3-14) % Eos % (Auto) 2.0 (2-4) % Baso % (Auto) 1.9 (0-2) % Neut # (Auto) 2200 (9189-8818) /uL Lymph # (Auto) 3300 (3381-2542) /uL Saline # (Auto) 500 (0-900) /uL Eos # (Auto) 100 (0-450) /uL Baso # (Auto) 100 (0-100) /uL Sodium 140 (137-145) mmol/L Potassium 3.7 (3.4-5.1) mmol/L Chloride 106 (98-107) mmol/L Carbon Dioxide 27 (22-32) mmol/L BUN 23 H (7-17) mg/dL Creatinine 0.53 (0.52-1.04) mg/dL Estimated GFR > 60 (>60) mL/min BUN/Creatinine Ratio 43.4 H (6-22) Glucose 147 H (80-110) mg/dL Calcium 9.4 (8.4-10.2) mg/dL Total Bilirubin 0.4 (0.2-1.3) mg/dL AST 26 (14-36) IU/L ALT 18 (<35) IU/L Alkaline Phosphatase 54 (38-126) U/L Total Protein 7.0 (6.3-8.2) g/dL Albumin 4.3 (3.5-5.0) g/dL Globulin 2.7 (1.7-4.1) g/dL Albumin/Globulin Ratio 1.6 (1.0-2.8) Lipase 237 (23-300) U/L TSH 1.49 (0.47-4.68) uIU/mL Urine RBC (0-5/HPF) Urine WBC (0-5/HPF) Ur Squamous Epith Cells (0-5/HPF) Amorphous Sediment Urine Bacteria (None) Ur Culture Indicated? SARS-CoV-2 (PCR) (Negative) 03/16/22 03/16/22 Range/Units 01:59 08:36 WBC (4.5-11.0) X10^3/uL RBC (4.0-5.2) X10^6/uL Hgb (12.0-16.0) g/dL Hct (36-46) % MCV (80-100) fL MCH (26-34) PG MCHC (30-36) % RDW (11.6-14.8) % Plt Count (150-400) X10^3/uL Neut % (Auto) (50-75) % Lymph % (Auto) (25-40) % Saline % (Auto) (3-14) % Eos % (Auto) (2-4) % Baso % (Auto) (0-2) % Neut # (Auto) (2983-8984) /uL Lymph # (Auto) (6292-8268) /uL Saline # (Auto) (0-900) /uL Eos # (Auto) (0-450) /uL Baso # (Auto) (0-100) /uL Sodium (137-145) mmol/L Potassium (3.4-5.1) mmol/L Chloride (98-107) mmol/L Carbon Dioxide (22-32) mmol/L BUN (7-17) mg/dL Creatinine (0.52-1.04) mg/dL Estimated GFR (>60) mL/min BUN/Creatinine Ratio (6-22) Glucose (80-110) mg/dL Calcium (8.4-10.2) mg/dL Total Bilirubin (0.2-1.3) mg/dL AST (14-36) IU/L ALT (<35) IU/L Alkaline Phosphatase (38-126) U/L Total Protein (6.3-8.2) g/dL Albumin (3.5-5.0) g/dL Globulin (1.7-4.1) g/dL Albumin/Globulin Ratio (1.0-2.8) Lipase (23-300) U/L TSH (0.47-4.68) uIU/mL Urine RBC None seen (0-5/HPF) Urine WBC 0-1/hpf (0-5/HPF) Ur Squamous Epith Cells 0-1 /hpf (0-5/HPF) Amorphous Sediment 2+ Urine Bacteria Occasional (0-1) (None) Ur Culture Indicated? Specimen cultured SARS-CoV-2 (PCR) Negative (Negative) Urine Dip Bedside Urine Glucose Negative Bedside Urine Bilirubin - Negative Bedside Urine Ketone - Negative Urine Specific [place] 1.010 Bedside Urine Occult Blood +/- Bedside Urine pH 8.0 Bedside Urine Protein - Negative Bedside Urine Urobilinogen - Negative Bedside Urine Nitrite - Negative Bedside Urine Leukocytes + 70 Esterase Point of care testing: Urine Dip Bedside Urine Glucose Negative Bedside Urine Bilirubin - Negative Bedside Urine Ketone - Negative Urine Specific [place] 1.010 Bedside Urine Occult Blood +/- Bedside Urine pH 8.0 Bedside Urine Protein - Negative Bedside Urine Urobilinogen - Negative Bedside Urine Nitrite - Negative Bedside Urine Leukocytes + [address] scan - abdomen/pelvis: Radiologist's Impression: Moderate right-sided hydro ureter nephrosis with 4 mm calculus present in the right UVJ. There are additional nonobstructing renal calculi bilaterally MDM Narrative Medical decision making narrative: No fevers. Kidney functions unremarkable. Urine shows no signs of infection. Does have right-sided UVJ 4 mm stone. Having some difficult time getting patient's symptoms under control. They have improved however patient is still fairly uncomfortable. Patient continues to vomit. I did discuss the case with Dr. Jennings on-call for Urology who recommended the belladonna opium suppository and also IV Tylenol. Will reassess after these medications are administered. Care turned over to Dr. Harman to follow-up and disposition. <Vesta Harman, - Last Filed: 03/17/22 12:00> Lab Data Labs: Lab Results 03/16/22 03/16/22 03/16/22 Range/Units 01:50 01:50 01:50 WBC 6.2 (4.5-11.0) X10^3/uL RBC 3.84 L (4.0-5.2) X10^6/uL Hgb 12.1 (12.0-16.0) g/dL Hct 36.4 (36-46) % MCV 94.8 (80-100) fL MCH 31.5 (26-34) PG MCHC 33.2 (30-36) % RDW 13.2 (11.6-14.8) % Plt Count 237 (150-400) X10^3/uL Neut % (Auto) 34.9 L (50-75) % Lymph % (Auto) 53.6 H (25-40) % Saline % (Auto) 7.6 (3-14) % Eos % (Auto) 2.0 (2-4) % Baso % (Auto) 1.9 (0-2) % Neut # (Auto) 2200 (3666-0850) /uL Lymph # (Auto) 3300 (4195-9987) /uL Saline # (Auto) 500 (0-900) /uL Eos # (Auto) 100 (0-450) /uL Baso # (Auto) 100 (0-100) /uL Sodium 140 (137-145) mmol/L Potassium 3.7 (3.4-5.1) mmol/L Chloride 106 (98-107) mmol/L Carbon Dioxide 27 (22-32) mmol/L BUN 23 H (7-17) mg/dL Creatinine 0.53 (0.52-1.04) mg/dL Estimated GFR > 60 (>60) mL/min BUN/Creatinine Ratio 43.4 H (6-22) Glucose 147 H (80-110) mg/dL Calcium 9.4 (8.4-10.2) mg/dL Total Bilirubin 0.4 (0.2-1.3) mg/dL AST 26 (14-36) IU/L ALT 18 (<35) IU/L Alkaline Phosphatase 54 (38-126) U/L Total Protein 7.0 (6.3-8.2) g/dL Albumin 4.3 (3.5-5.0) g/dL Globulin 2.7 (1.7-4.1) g/dL Albumin/Globulin Ratio 1.6 (1.0-2.8) Lipase 237 (23-300) U/L TSH 1.49 (0.47-4.68) uIU/mL Urine RBC (0-5/HPF) Urine WBC (0-5/HPF) Ur Squamous Epith Cells (0-5/HPF) Amorphous Sediment Urine Bacteria (None) Ur Culture Indicated? SARS-CoV-2 (PCR) (Negative) 03/16/22 03/16/22 Range/Units 01:59 08:36 WBC (4.5-11.0) X10^3/uL RBC (4.0-5.2) X10^6/uL Hgb (12.0-16.0) g/dL Hct (36-46) % MCV (80-100) fL MCH (26-34) PG MCHC (30-36) % RDW (11.6-14.8) % Plt Count (150-400) X10^3/uL Neut % (Auto) (50-75) % Lymph % (Auto) (25-40) % Saline % (Auto) (3-14) % Eos % (Auto) (2-4) % Baso % (Auto) (0-2) % Neut # (Auto) (2800-3079) /uL Lymph # (Auto) (8910-9841) /uL Saline # (Auto) (0-900) /uL Eos # (Auto) (0-450) /uL Baso # (Auto) (0-100) /uL Sodium (137-145) mmol/L Potassium (3.4-5.1) mmol/L Chloride (98-107) mmol/L Carbon Dioxide (22-32) mmol/L BUN (7-17) mg/dL Creatinine (0.52-1.04) mg/dL Estimated GFR (>60) mL/min BUN/Creatinine Ratio (6-22) Glucose (80-110) mg/dL Calcium (8.4-10.2) mg/dL Total Bilirubin (0.2-1.3) mg/dL AST (14-36) IU/L ALT (<35) IU/L Alkaline Phosphatase (38-126) U/L Total Protein (6.3-8.2) g/dL Albumin (3.5-5.0) g/dL Globulin (1.7-4.1) g/dL Albumin/Globulin Ratio (1.0-2.8) Lipase (23-300) U/L TSH (0.47-4.68) uIU/mL Urine RBC None seen (0-5/HPF) Urine WBC 0-1/hpf (0-5/HPF) Ur Squamous Epith Cells 0-1 /hpf (0-5/HPF) Amorphous Sediment 2+ Urine Bacteria Occasional (0-1) (None) Ur Culture Indicated? Specimen cultured SARS-CoV-2 (PCR) Negative (Negative) Urine Dip Bedside Urine Glucose Negative Bedside Urine Bilirubin - Negative Bedside Urine Ketone - Negative Urine Specific [place] 1.010 Bedside Urine Occult Blood +/- Bedside Urine pH 8.0 Bedside Urine Protein - Negative Bedside Urine Urobilinogen - Negative Bedside Urine Nitrite - Negative Bedside Urine Leukocytes + 70 Esterase Point of care testing: Urine Dip Bedside Urine Glucose Negative Bedside Urine Bilirubin - Negative Bedside Urine Ketone - Negative Urine Specific [place] 1.010 Bedside Urine Occult Blood +/- Bedside Urine pH 8.0 Bedside Urine Protein - Negative Bedside Urine Urobilinogen - Negative Bedside Urine Nitrite - Negative Bedside Urine Leukocytes + 70 Esterase MDM Narrative Medical decision making narrative: No fevers. Kidney functions unremarkable. Urine shows no signs of infection. Does have right-sided UVJ 4 mm stone. Having some difficult time getting patient's symptoms under control. They have improved however patient is still fairly uncomfortable. Patient continues to vomit. I did discuss the case with Dr. Jennings on-call for Urology who recommended the belladonna opium suppository and also IV Tylenol. Will reassess after these medications are administered. Care turned over to Dr. Harman to follow-up and disposition. Ghazal 03/16/22: Patient signed out to myself by Dr. Schulte. Patient has 4 mm UVJ stone without any signs of infection or sepsis. Patient has multiple doses of medications IV antiemetics and pain medications without resolution. Dr. Jennings was consulted x2 by Dr. Schulte followed by myself he asked that we put the patient into medicine because he isn't aware of all the best medications for nausea. Spoke with the hospitalist, Dr. Thornton who kindly accepts. Discharge Plan Departure Patient Disposition: Admitted as Observation Clinical Impression: Renal colic on right side, Intractable vomiting Admit Date/Time: 03/16/22 09:07 Admit Provider: Rylan Thornton
[2022-03-16] MEDS: SODIUM CHLORIDE 0.9% 1,000 ML 1000 ML IV (02:08)
[2022-03-16] MEDS: MORPHINE 4 MG/ML INJ IV (02:09)
[2022-03-16 02:10] LABS: Alanine Aminotransferase 18 IU/L (<35); Albumin 4.3 g/dL (3.5-5.0); Albumin Globulin Ratio 1.6 (1.0-2.8); Alkaline Phosphatase 54 U/L (38-126); Aspartate Aminotransferase 26 IU/L (14-36); BUN Creatinine Ratio 43.4 (6-22); Bilirubin Total 0.4 mg/dL (0.2-1.3); Blood Urea Nitrogen 23 mg/dL (7-17); Calcium 9.4 mg/dL (8.4-10.2); Carbon Dioxide 27 mmol/L (22-32); Chloride 106 mmol/L (98-107); Estimated Glomerular Filt Rate > 60 mL/min (>60); Globulin 2.7 g/dL (1.7-4.1); Glucose 147 mg/dL (80-110); HEMOLYSIS < 15 (0-50); Lipase 237 U/L (23-300); Potassium 3.7 mmol/L (3.4-5.1); Sodium 140 mmol/L (137-145)
[2022-03-16 02:16] LABS: Amorphous Sediment Urine 2+; Bacteria Urine Occasional (0-1); Culture Indicated Urine Specimen Cultured; RBC Urine None Seen (0-5/HPF); Squamous Epithelial Cell Urine 0-1 /HPF (0-5/HPF); WBC Urine 0-1/HPF (0-5/HPF)
[2022-03-16] MEDS: KETOROLAC 30 MG/ML VIAL IV ×2 (02:31→10:28)
[2022-03-16] MEDS: HYDROMORPHONE 0.5 MG INJ IV ×3 (04:26→11:45)
[2022-03-16] MEDS: ONDANSETRON 4 MG/2 ML INJ IV ×2 (05:26→07:43)
[2022-03-16] MEDS: SODIUM CHLORIDE 0.9% IV (05:51)
[2022-03-16] MEDS: LIDOCAINE 2% IV (05:51)
[2022-03-16] MEDS: BELLADONNA/OPIUM SUPPOSITORIES 1 EACH PR (08:27)
[2022-03-16] MEDS: ACETAMINOPHEN 1,000 MG/100 ML IV (08:27)
[2022-03-16] MEDS: diphenhydrAMINE 50 MG/ML VIAL 25 MG IV ×2 (09:00→11:45)
--- NOTE | 2022-03-16 09:03 | PC.NURSE ---
Pt continues to be nauseous, physician aware.
[2022-03-16 09:06] LABS: COVID19 -Nasal RAPID Negative (Negative)
--- NOTE | 2022-03-16 09:16 | PM.HP.1 ---
History of Present Illness History of Present Illness Chief complaint: Lower RT. abd.pain Narrative: Freddy Broussard is a 61-year-old female with past medical history of hyperthyroidism, appendectomy, cholecystectomy presenting with right-sided flank pain and intractable nausea and vomiting. Patient states she went to sleep around 11:30 p.m. last night feeling normal and then was awoken in the middle of the night with excruciating right flank pain 10/10 which was constant and unrelenting as well as intractable nausea and vomiting. Once in the ED she had difficult to control pain and nausea and vomiting. A CT abdomen and pelvis showed a 4 mm kidney stone at the right ureteropelvic junction with moderate right-sided hydroureteronephrosis. Dr. Jennings urology was called who said to keep patient NPO for possible stent placement. Once on the floor patient states he pain is currently 5/10 after receiving Toradol and Dilaudid. She continues to have no appetite. She states she has never had a kidney stone before however her sister has had multiple recurrent kidney stones requiring lithotripsy. Her nausea is currently better controlled after Reglan. She feels slightly loopy after receiving IV Benadryl for itching following the pain medication. She denies chest pain, cough, shortness of breath, hematuria or diarrhea. Patient History Surgical History Hx of appendectomy Hx of cholecystectomy Family & Social History Family History (Updated 03/16/22 @ 14:33 by Rylan Thornton DO) Sister Kidney stone Mother Heart disease Father Parkinson disease Social History: Drinks alcohol once per month. Safety & Behavioral: Feels Safe in Current Yes Environment Tobacco & Substance use: Smoking Status Never smoker Substance Use Type does not use Meds Home Medications and Allergies Home Medications Medication Instructions Recorded Confirmed Type allopurinol 100 mg tablet 100 tab PO Q OTHER DAY 03/16/22 03/16/22 History dexlansoprazole 60 mg 60 mg PO DAILY 03/16/22 03/16/22 History capsule,biphase delayed release (Dexilant) fenofibrate nanocrystallized 48 mg 40 tab PO DAILY 03/16/22 03/16/22 History tablet (Tricor) levothyroxine 75 mcg tablet 75 tab PO DAILY 03/16/22 03/16/22 History (Synthroid) Allergies Allergy/AdvReac Type Severity Reaction Status Date / Time codeine Allergy Verified 01/11/21 14:54 Penicillins Allergy Verified 01/11/21 14:54 Review of Systems Review of Systems Narrative: All other systems reviewed with the patient and are negative unless otherwise stated. Exam Vital Signs (past 8 hours): - 03/16/22 01:40 03/16/22 04:30 03/16/22 05:00 Temperature 97.7 F Pulse Rate 67 68 77 Respiratory Rate 17 18 18 Blood Pressure 127/62 Pulse Oximetry 99 96 94 Oxygen Delivery Method Room Air 03/16/22 05:30 03/16/22 06:00 03/16/22 07:00 Temperature Pulse Rate 78 65 70 Respiratory Rate 18 18 Blood Pressure Pulse Oximetry 98 94 96 Oxygen Delivery Method 03/16/22 07:01 03/16/22 07:01 03/16/22 07:30 Temperature Pulse Rate 62 Respiratory Rate Blood Pressure 114/59 L 116/57 L Pulse Oximetry 95 Oxygen Delivery Method 03/16/22 07:30 03/16/22 08:00 03/16/22 08:00 Temperature Pulse Rate 64 60 Respiratory Rate Blood Pressure 110/56 L Pulse Oximetry 94 96 Oxygen Delivery Method 03/16/22 08:30 03/16/22 09:00 03/16/22 09:00 Temperature Pulse Rate 61 74 Respiratory Rate Blood Pressure 136/65 Pulse Oximetry 97 95 Oxygen Delivery Method Oxygen Delivery Method Room Air Narrative Exam Narrative: General:? Patient is well developed and well nourished, in no distress at this time. Appears uncomfortable. HEENT:? Normocephalic, atraumatic, extraocular muscles intact, oral pharynx is clear and mucous membranes are moist. Neck: supple and symmetric, trachea is midline, no cervical adenopathy. Negative for JVD Chest:? Normal AP diameter and contour without kyphoscoliosis, no tachypnea, equal chest rise bilaterally. Lungs:? CTA b/l no wheezing rhonchi or rales. Cardio:?RRR no m/r/g. Abdomen: S NT ND. Right-sided flank pain to palpation. Musculoskeletal:? Muscle strength and tone are equal within normal limits, no deformity. Extremities: No edema or joint effusions. No cyanosis or clubbing. Skin:? Pale,? Warm to touch,dry and intact without rashes, ulcerations or petechiae.? Neuro:? Alert and orientated x3,?slightly drowsy. Sensation to touch intact in all extremities, no gross deficits noted of cranial nerves. Psych:? Patient has a well-kept appearance, appropriate affect, mental status attitude thought context and judgment are appropriate for age. Objective Labs Result Diagrams: 03/16/22 01:50 03/16/22 01:50 Labs: Laboratory Results - last 24 hr 03/16/22 03/16/22 03/16/22 01:50 01:50 01:59 WBC 6.2 RBC 3.84 L Hgb 12.1 Hct 36.4 MCV 94.8 MCH 31.5 MCHC 33.2 RDW 13.2 Plt Count 237 Neut % (Auto) 34.9 L Lymph % (Auto) 53.6 H [place] % (Auto) 7.6 Eos % (Auto) 2.0 Baso % (Auto) 1.9 Neut # (Auto) 2200 Lymph # (Auto) 3300 [place] # (Auto) 500 Eos # (Auto) 100 Baso # (Auto) 100 Sodium 140 Potassium 3.7 Chloride 106 Carbon Dioxide 27 BUN 23 H Creatinine 0.53 Estimated GFR > 60 BUN/Creatinine Ratio 43.4 H Glucose 147 H Calcium 9.4 Total Bilirubin 0.4 AST 26 ALT 18 Alkaline Phosphatase 54 Total Protein 7.0 Albumin 4.3 Globulin 2.7 Albumin/Globulin Ratio 1.6 Lipase 237 Urine RBC None seen Urine WBC 0-1/hpf Ur Squamous Epith Cells 0-1 /hpf Amorphous Sediment 2+ Urine Bacteria Occasional (0-1) Ur Culture Indicated? Specimen cultured SARS-CoV-2 (PCR) 03/16/22 08:36 WBC RBC Hgb Hct MCV MCH MCHC RDW Plt Count Neut % (Auto) Lymph % (Auto) [place] % (Auto) Eos % (Auto) Baso % (Auto) Neut # (Auto) Lymph # (Auto) [place] # (Auto) Eos # (Auto) Baso # (Auto) Sodium Potassium Chloride Carbon Dioxide BUN Creatinine Estimated GFR BUN/Creatinine Ratio Glucose Calcium Total Bilirubin AST ALT Alkaline Phosphatase Total Protein Albumin Globulin Albumin/Globulin Ratio Lipase Urine RBC Urine WBC Ur Squamous Epith Cells Amorphous Sediment Urine Bacteria Ur Culture Indicated? SARS-CoV-2 (PCR) Negative Assessment & Plan Assessment and plan (1) Hyperthyroidism: Status: Acute Assessment & Plan narrative: Freddy Broussard is a 61-year-old female with past medical history of hyperthyroidism, appendectomy, cholecystectomy presenting with right-sided flank pain and intractable nausea and vomiting. # right-sided nephrolithiasis, acute present on admission -CT abdomen and pelvis showed 4 mm stone at ureterovesical junction with moderate right hydroureteronephrosis -Dr. Jennings on urology consulted from ER, said to keep patient NPO for possible stent placement -Toradol as needed and Dilaudid as needed for pain control -IV fluids -Zofran and Reglan as needed for nausea and vomiting # hyperthyroidism, chronic -not on home medications -check TSH Code status is full code. She is observation status. Proxy is her . I have reviewed home meds and used all available resources to reconcile the home meds. Time Spent With Patient Critical Care time: I spent a total of [] minutes of critical care time on this patient's care today; this time is exclusive of procedural time.
[2022-03-16] MEDS: LACTATED RINGERS 1,000 ML 100 ML IV ×2 (10:03→20:40)
[2022-03-16 10:11] LABS: Thyroid Stimulating Hormone 1.49 uIU/mL (0.47-4.68)
[2022-03-16] MEDS: TAMSULOSIN 0.4 MG CAPSULE PO (21:59)
[2022-03-17] VITALS (13 sets, daily range): BP systolic 83–124; BP diastolic 40–79; PULSE 53–68; RESP 14–19; TEMP 35.8–37.4; O2SAT 96–100; BMI 21.9
[2022-03-17] MEDS: PANTOPRAZOLE DR 20 MG TABLET 40 MG PO (00:45)
[2022-03-17] MEDS: BELLADONNA/OPIUM SUPPOSITORIES 1 EACH PR ×3 (00:46→17:10)
[2022-03-17] MEDS: PANTOPRAZOLE DR 40 MG TABLET PO (06:18)
[2022-03-17] MEDS: LEVOTHYROXINE 75 MCG TABLET PO (06:18)
[2022-03-17] MEDS: LACTATED RINGERS 1,000 ML 100 ML IV ×2 (06:59→16:34)
[2022-03-17 07:32] LABS: Add Manual Diff / Slide Review NO; Basophils Absolute Auto 100 /uL (0-100); Basophils Percent Auto 1.1 % (0-2); Eosinophils Absolute Auto 100 /uL (0-450); Eosinophils Percent Auto 1.5 % (2-4); Hematocrit 32.8 % (36-46); Hemoglobin 11.3 g/dL (12.0-16.0); Lymphocytes Absolute Auto 3600 /uL (1100-4500); Lymphocytes Percent Auto 46.4 % (25-40); Mean Corpuscular HGB Conc 34.3 % (30-36); Mean Corpuscular Hemoglobin 32.2 PG (26-34); Mean Corpuscular Volume 93.7 fL (80-100); Monocytes Absolute Auto 400 /uL (0-900); Monocytes Percent Auto 5.1 % (3-14); Neutrophils Absolute Auto 3600 /uL (1500-7000); Neutrophils Percent Auto 45.9 % (50-75); Platelet Count 208 X10^3/uL (150-400); Red Cell Distribution Width 13.4 % (11.6-14.8); White Blood Cell Count 7.8 X10^3/uL (4.5-11.0)
[2022-03-17 07:42] LABS: BUN Creatinine Ratio 29.7 (6-22); Blood Urea Nitrogen 19 mg/dL (7-17); Calcium 8.7 mg/dL (8.4-10.2); Carbon Dioxide 29 mmol/L (22-32); Chloride 108 mmol/L (98-107); Estimated Glomerular Filt Rate > 60 mL/min (>60); Glucose 100 mg/dL (80-110); HEMOLYSIS < 15 (0-50); Potassium 3.7 mmol/L (3.4-5.1); Sodium 139 mmol/L (137-145)
--- NOTE | 2022-03-17 08:22 | PC.NURSE ---
Addendum entered by Judy Pastrana R.N. 03/17/22 13:14: Patient refused her suppository (belladona). Sitting up in chair and comfortably. She has not passed any stones, we are straining her urine. Addendum entered by Judy Pastrana R.N. 03/17/22 12:50: Patient will be going for a stent placement around 1630 today. She just showered and is back on her ivf. Denies pain. Addendum entered by Judy Pastrana R.N. 03/17/22 08:30: Patient may go to surgery for a stent placement today. Original Note: Assess-Patient is alert and oriented x3, she denies pain at this time and has not passed her kidney stone yet. Up independently in room, patient has been npo. Bowel tones are hypoactive, patient brushed her teeth, reminded her not to swallow any water. called and he states that he will be her to see patient soon.
--- NOTE | 2022-03-17 09:22 | CM.DANOTE ---
DCP: Case received, EMR reviewed and met with patient. Introduced self and role. Was able to obtain information regarding patient's baseline activity status prior to admission. DCP assessment completed with information currently available. Patient is a 61 year old female who admitted yesterday morning to the care of the hospitalist team. PCP: Dr. Groves. Payer: confirmed: [employer]. Patient came to the hospital via private vehicle secondary to having increased abdominal discomfort. Patient holds diagnosis of kidney stone. She may be having procedure today with a shunt by urologist. Met with patient in her room. She is pleasant, alert and oriented. Patient was sitting up in the chair next to her bed. She resides in [place] with her spouse, Abdiel. [facility] [place] [facility] P: DCP to continue to follow. Patient should be able to go home when she is deemed medically stable. Smita Turk RN/Aeronautics Teacher Discharge Planning/Care Management CM Discharge Assessment Start: 03/17/22 09:20 Freq: Status: Active Protocol: Document 03/17/22 09:20 (Rec: 03/17/22 09:22 [id number]) Discharge Planning Assessment Assigned [facility] [employer] Smita Turk RN/Aeronautics Teacher Advance Directives? No History Provided By Patient Prior Living Arrangements House Household Members spouse Type of transporation used prior to Drives own vehicle admit Independent with ADL's Yes Is patient alert and oriented? Yes Caregiver for Another No Barriers to Discharge No Discharge Plan Home Transportation Arrangement Spouse Referrals Initiated None needed Whiteboard Updated in Patient Room with Yes name and ext. # of [facility] [employer] Review Status In Process Next Review Type Continued Stay Review
--- NOTE | 2022-03-17 12:58 | P.CONS_ITS ---
History of Present Illness Consult details Date Patient Seen: 03/17/22 Time Patient Seen: 12:10 Chief complaint: Lower RT. abd.pain Reason for consult: Obstructing 4 mm right ureterovesical junction calculus. Requesting provider: Hubert Schulte Narrative: Patient is a 61-year-old female that awoke yesterday with onset right-sided flank and abdominal pain prompting a presentation to Hospital ED. evaluation included CT KUB which demonstrated a nonobstructing left lower pole calculus, and an obstructing 4 mm right distal ureteral calculus near the ureterovesical junction. The patient has a known intolerance to codeine (nausea and vomiting). In [facility] ED pain management with narcotic analgesics was administered and patient had unremitting nausea and vomiting thereafter her pain seems to be exacerbated as well. Decision was made for admission for management of nausea and pain and allow opportunity spontaneously passed this 4 mm calculus. She reports known previous history of nonobstructive nephrolithiasis. She states that she has 4 sisters, all of which have had issues with stones. The patient relates a personal history of having been evaluated for stone disease and a 1 point on 1 study was told it allopurinol is indicated. She takes 100 mg every other day currently. Another studies she was told under calcium was too high. Meds Home Medications and Allergies Home Medications Medication Instructions Recorded Confirmed Type allopurinol 100 mg tablet 100 tab PO Q OTHER DAY 03/16/22 03/16/22 History dexlansoprazole 60 mg 60 mg PO DAILY 03/16/22 03/16/22 History capsule,biphase delayed release (Dexilant) fenofibrate nanocrystallized 48 mg 40 tab PO DAILY 03/16/22 03/16/22 History tablet (Tricor) levothyroxine 75 mcg tablet 75 tab PO DAILY 03/16/22 03/16/22 History (Synthroid) Allergies Allergy/AdvReac Type Severity Reaction Status Date / Time codeine Allergy Verified 01/11/21 14:54 Penicillins Allergy Verified 01/11/21 14:54 Exam Vital Signs (past 8 hours): - 03/17/22 06:00 03/17/22 07:38 03/17/22 10:00 Temperature 98.2 F Pulse Rate 58 L Respiratory Rate 16 Blood Pressure 102/60 Pulse Oximetry 98 97 Oxygen Delivery Method Room Air Room Air Oxygen Flow Rate 0 03/17/22 12:14 Temperature 96.9 F L Pulse Rate 60 Respiratory Rate 16 Blood Pressure 97/55 L Pulse Oximetry 96 Oxygen Delivery Method Oxygen Flow Rate 0 Oxygen Delivery Method Room Air Oxygen Flow Rate 0 Narrative Exam Narrative: She is a well-developed, well-nourished, currently active female in no distress. It appears though she just finished bathing or showering. She denies current pain. She reports severe pain and nausea yesterday that was much worse then delivery of either for children. Head/neck-sclera are clear and pupils are round and equal. No visible evidence of JVD or adenopathy. Chest-equal nonlabored expansion bilaterally Heart-normal sinus rhythm. Abdomen-bowel tones are normal and active. No palpable mass or tenderness elicited. Objective Labs Result Diagrams: 03/17/22 06:35 03/17/22 06:35 Labs: Laboratory Results - last 24 hr 03/17/22 03/17/22 06:35 06:35 WBC 7.8 RBC 3.50 L Hgb 11.3 L Hct 32.8 L MCV 93.7 MCH 32.2 MCHC 34.3 RDW 13.4 Plt Count 208 Neut % (Auto) 45.9 L Lymph % (Auto) 46.4 H [place] % (Auto) 5.1 Eos % (Auto) 1.5 L Baso % (Auto) 1.1 Neut # (Auto) 3600 Lymph # (Auto) 3600 [place] # (Auto) 400 Eos # (Auto) 100 Baso # (Auto) 100 Sodium 139 Potassium 3.7 Chloride 108 H Carbon Dioxide 29 BUN 19 H Creatinine 0.64 Estimated GFR > 60 BUN/Creatinine Ratio 29.7 H Glucose 100 Calcium 8.7 Magnesium 2.0 PFSH Surgical History Hx of appendectomy Hx of cholecystectomy Family History Sister Kidney stone Mother Heart disease Father Parkinson disease Social History household members: spouse Tobacco & Substance Use Smoking Status: Never smoker substance use type: does not use Assessment & Plan Assessment & Plan narrative: Assessment: 1. Obstructing right ureterovesical junction calculus. Recalcitrant right renal colic. 3. For failure for stone passage without observation and under medical expulsion therapy. Explain the common etiologies for stone disease and the rationale and indications for follow-up re-evaluation of underlying risk factors. Explained the statistical likelihood of spontaneous and successful stone passage with a variety of stone sizes. Explained to her that a 4 mm stone is approximately a 50% successful passage rate within a reasonable time frame. Discussed options including trial under outpatient monitoring and continued medical spoken therapy verses intervention. She desires intervention to get the situation addressed timely and resolved definitively. Explained the common side effects, possible complications, perioperative limitations/restrictions, and reasonable expectations of outcomes and recovery following ureteroscopic laser lithotripsy. She had several clarifying concerns and questions which were addressed to her satisfaction at the encounter. Plan: 1. Schedule semi emergent CYSTOSCOPY/RIGHT URETEROSCOPIC LASER LITHOTRIPSY/PLACEMENT RIGHT URETERAL STENT. 2. Repeat metabolic stone risk evaluation-outpatient. Time Spent With Patient Critical Care time: I spent a total of [] minutes of critical care time on this patient's care today; this time is exclusive of procedural time.
--- NOTE | 2022-03-17 16:06 | PM.PN.1 ---
Subjective Subjective Date Patient Seen: 03/17/22 Interval history: 61 y/o female admitted with renal colic. Patient denies in pain currently, she was found to have a UPJ obstruction and is awaiting Cystoscopy with stent placement by Urology Exam Vital Signs (past 8 hours): - 03/17/22 10:00 03/17/22 12:14 03/17/22 14:00 Temperature 96.9 F L Pulse Rate 60 Respiratory Rate 16 Blood Pressure 97/55 L Pulse Oximetry 96 Oxygen Delivery Method Room Air Room Air Oxygen Flow Rate 0 Oxygen Delivery Method Room Air Oxygen Flow Rate 0 Narrative Exam Narrative: pleasant female resting comfortably in no acute distress Resp Other: Lungs: clear to auscultation Cardio Other: CV: RRR nl Sl S2 GI Other: Abd: soft/ non tender/ non distended, no CVAT Extrem Other: no Edema Objective Labs Result Diagrams: 03/17/22 06:35 03/17/22 06:35 Labs: Laboratory Results - last 24 hr 03/17/22 03/17/22 06:35 06:35 WBC 7.8 RBC 3.50 L Hgb 11.3 L Hct 32.8 L MCV 93.7 MCH 32.2 MCHC 34.3 RDW 13.4 Plt Count 208 Neut % (Auto) 45.9 L Lymph % (Auto) 46.4 H [place] % (Auto) 5.1 Eos % (Auto) 1.5 L Baso % (Auto) 1.1 Neut # (Auto) 3600 Lymph # (Auto) 3600 [place] # (Auto) 400 Eos # (Auto) 100 Baso # (Auto) 100 Sodium 139 Potassium 3.7 Chloride 108 H Carbon Dioxide 29 BUN 19 H Creatinine 0.64 Estimated GFR > 60 BUN/Creatinine Ratio 29.7 H Glucose 100 Calcium 8.7 Magnesium 2.0 PFSH Surgical History Hx of appendectomy Hx of cholecystectomy Family History Sister Kidney stone Mother Heart disease Father Parkinson disease Social History household members: spouse Smoking Status: Never smoker substance use type: does not use Assessment & Plan Assessment & Plan narrative: right-sided nephrolithiasis, acute present on admission -CT abdomen and pelvis showed 4 mm stone at ureterovesical junction with moderate right hydroureteronephrosis -Dr. Jennings on urology consulted from ER, said to keep patient NPO for possible stent placement -Toradol as needed and Dilaudid as needed for pain control -IV fluids -Zofran and Reglan as needed for nausea and vomiting -appreciate Urology consultation -patient to have urgent cystoscopy with stent placement today -further recommendations pending eval per Dr. Jennings # hyperthyroidism, chronic -not on home medications -check TSH Time Spent With Patient Critical Care time: I spent a total of [] minutes of critical care time on this patient's care today; this time is exclusive of procedural time.
--- NOTE | 2022-03-17 16:17 | PM.PREOP ---
Pre-operative Note COVID-19 Criteria for continued procedure: Possibility delay results in more complex future surgery or treatment, Continuing or worsening of significant or severe pain, Deterioration of the patient's condition or overall health and Delay expected to result in less-positive ultimate med/surg outcome Interval Note History & Physical reviewed/Exam performed by Physician: Yes Changes to H&P: No
[2022-03-17] MEDS: CIPROFLOXACIN 400 MG/200 ML PIGGYBACK 200 MG IV (16:25)
--- NOTE | 2022-03-17 16:58 | SUR.OPER ---
Lithotomy on padded OR bed, head on pillow, arms secured on padded arm boards at <90 degrees abduction. Legs secured in padded yellow fins stirrups.
--- NOTE | 2022-03-17 17:22 | P.OP_ITS ---
Operative Date/Time/Diagnoses Date of procedure: 03/17/22 Time of procedure: 17:22 Pre-op diagnosis: 1. 4 mm obstructing right ureterovesical junction calculus. 2. Intractable right renal colic. Post-op diagnosis: other (3. Interval passage of index calculus. ) Procedure & Clinicians Procedure: 1. Cystoscopy/right ureteroscopy. Same procedure as scheduled: Yes Indications: 1. Obstructing 4 mm right ureterovesical junction calculus. 2. Intractable right renal colic. Surgeon: Messi Jennings Click Yes if Unassisted: Yes Anesthesia Type: General Operative Notes Findings: 1. Urethra-mildly patulous with small caruncle. Caruncle was not inflamed or thrombosed. There is at least a grade 2 cystocele. 2. Bladder-normal urothelium throughout with depression of bladder for due to 2+ cystocele. Normal ureteral orifices bilaterally. There is not appear to be significant edema or trauma surrounding the right ureteral orifice or intramural ureter. Closure Type: not applicable Specimen(s): none sent Estimated Blood Loss (mL): 0 Blood products transfused: none Procedure in detail: Patient was positioned supine was administered general anesthesia. The lower abdomen, genitalia, and groin were then prepped and draped in sterile fashion. Twenty-two Norwegian pannus over the past lower urinary tract with findings as described above. A 0.35 hybrid guidewire was then advanced in the right collecting system under direct and fluoroscopic guidance. Over this a 12 [place] by 6 cm balloon dilating catheter was advanced over the hybrid guidewire and positioned across the right ureterovesical junction. The balloon was then inflated to 18 atmospheres and held in position for 5 minutes. The balloon was then deflated and then was backed off the hybrid guidewire. Next, the semi rigid ureteral scope was prepared and advanced lower urinary tract and then into the right distal ureter under direct and fluoroscopic guidance. Scope was advanced under careful direct visualization to level of the right renal pelvis without finding of obstructing stone or significant trauma from stone passage. Two passes from beginning to end the ureter were conducted of. The semi rigid ureteral scope was then removed. The panendoscope was then passed in the bladder once again for final inspection. No stone was recovered in bladder or and drain bag. Scope was then removed after emptying of the bladder for final time. The patient was then repositioned supine, was awakened, was transferred to [facility] awake and in stable condition. Complications: none Post-operative Condition: stable Disposition: PACU Plan for aftercare: Discharge home. Patient to contact Urology Clinic to schedule follow-up appointment.
--- NOTE | 2022-03-17 18:13 | SUR.PHASEI ---
1800: Pt A&Ox4, denies any distress and ready to transfer to room. Report given to receiving RN using SBAR with time allowed for questions. Pt transferred to room 215, personal belongings remained in pt room while in surgery.
--- NOTE | 2022-03-17 18:27 | PM.DS.1 ---
History of Present Illness History of Present Illness Date Patient Seen: 03/17/22 Time Patient Seen: 18:27 Chief complaint: Lower RT. abd.pain Narrative: Freddy Broussard is a 61-year-old female with past medical history of hyperthyroidism, appendectomy, cholecystectomy presenting with right-sided flank pain and intractable nausea and vomiting.? Patient states she went to sleep around 11:30 p.m. last night feeling normal and then was awoken in the middle of the night with excruciating right flank pain 10/10 which was constant and unrelenting as well as intractable nausea and vomiting.? Once in the ED she had difficult to control pain and nausea and vomiting.? A CT abdomen and pelvis showed a 4 mm kidney stone at the right ureteropelvic junction with moderate right-sided hydroureteronephrosis. Dr. Jennings urology was called who said to keep patient NPO for possible stent placement. Once on the floor patient states he pain is currently 5/10 after receiving Toradol and Dilaudid.? She continues to have no appetite.? She states she has never had a kidney stone before however her sister has had multiple recurrent kidney stones requiring lithotripsy.? Her nausea is currently better controlled after Reglan.? She feels slightly loopy after receiving IV Benadryl for itching following the pain medication.? She denies chest pain, cough, shortness of breath, hematuria or diarrhea. Discharge Providers Provider Date of admission: 03/17/22 09:45 Discharge Date: 03/17/22 Primary care physician: Kandace Groves MD Consults: 03/16/22 09:15 Consult to Urology Routine Comment: Consulting Provider: Messi Jennings Reason for consultation: nephrolithiasis with uncontrolled pain Has provider been notified: Yes Discharge provider: Idalia Britton MD Summary Hospital Course Discharge Diagnosis: 1. Renal colic 2. Right sided Hydronephrosis secondary to obstructing right ureterovesical junction calculus 3. s/p Cystscopy/right ureteroscopy Hospital Course: Patient was admitted to the hospital due to right sided flank and abdominal pain. CT KUB revealed a nono obstructing left lower pole calculus and an obstructing 4 mm distal ureteral calculus near the UPJ junction. Patient was given pain medications and seen in consultation by Dr. Jennings from Urology. She underwent cystoscopy and right ureteroscopy which revealed the following findings: Urethra-mildly patulous with small caruncle.? Caruncle was not inflamed or thrombosed.? There is at least a grade 2 cystocele.? 2. Bladder-normal urothelium throughout with depression of bladder for due to 2+ cystocele.? Normal ureteral orifices bilaterally.? There is not appear to be significant edema or trauma surrounding the right ureteral orifice or intramural ureter. Patient had no further pain and was deemed appropriate for discharge home. Status at Discharge Cognitive/behavioral status at discharge: oriented Functional status at discharge: independent ambulation Overall status at discharge: patient is progressing back to baseline Exam Vital Signs (past 8 hours): - 03/17/22 12:14 03/17/22 14:00 03/17/22 15:40 Temperature 96.9 F L 99.3 F Pulse Rate 60 53 L Respiratory Rate 16 17 Blood Pressure 97/55 L 102/41 L Pulse Oximetry 96 97 Oxygen Delivery Method Room Air Oxygen Flow Rate 0 0 03/17/22 16:29 03/17/22 17:29 03/17/22 17:34 Temperature 97.1 F L 96.5 F L Pulse Rate 66 64 68 Respiratory Rate 16 14 14 Blood Pressure 124/65 120/67 123/63 Pulse Oximetry 98 98 98 Oxygen Delivery Method Room Air Room Air Room Air Oxygen Flow Rate 03/17/22 17:39 03/17/22 17:44 03/17/22 17:49 Temperature Pulse Rate 64 57 L 57 L Respiratory Rate 14 19 14 Blood Pressure 123/54 L 107/79 120/60 Pulse Oximetry 100 100 98 Oxygen Delivery Method Room Air Room Air Room Air Oxygen Flow Rate 03/17/22 18:04 Temperature 98.1 F Pulse Rate 54 L Respiratory Rate 16 Blood Pressure 102/48 L Pulse Oximetry 100 Oxygen Delivery Method Room Air Oxygen Flow Rate Oxygen Delivery Method Room Air Oxygen Flow Rate 0 Narrative Exam Narrative: pleasant female in no acute distress Resp Other: Lungs: clear to auscultation Cardio Other: CV: RRR nl Sl S2 GI Other: Abd; soft/ non tender/ non distended/ no CVAT Extrem Other: No edema Objective Labs Result Diagrams: 03/17/22 06:35 03/17/22 06:35 Labs: Laboratory Results - last 24 hr 03/17/22 03/17/22 06:35 06:35 WBC 7.8 RBC 3.50 L Hgb 11.3 L Hct 32.8 L MCV 93.7 MCH 32.2 MCHC 34.3 RDW 13.4 Plt Count 208 Neut % (Auto) 45.9 L Lymph % (Auto) 46.4 H [place] % (Auto) 5.1 Eos % (Auto) 1.5 L Baso % (Auto) 1.1 Neut # (Auto) 3600 Lymph # (Auto) 3600 [place] # (Auto) 400 Eos # (Auto) 100 Baso # (Auto) 100 Sodium 139 Potassium 3.7 Chloride 108 H Carbon Dioxide 29 BUN 19 H Creatinine 0.64 Estimated GFR > 60 BUN/Creatinine Ratio 29.7 H Glucose 100 Calcium 8.7 Magnesium 2.0 PFSH Surgical History Hx of appendectomy Hx of cholecystectomy Family History Sister Kidney stone Mother Heart disease Father Parkinson disease Social History household members: spouse Smoking Status: Never smoker alcohol intake: current substance use type: does not use Discharge Assessment & Plan Assessment and Plan Assessment: 1. Renal colic 2. Right sided Hydronephrosis secondary to obstructing right ureterovesical junction calculus 3. s/p Cystscopy/right ureteroscopy Plan of Treatment: Discharge home F/u with , call to see in clinic Discharge Plan Discharge Plan Patient Disposition: Home Provider Discharge Comment: Please contact the urology clinic to schedule follow-up appointment. Discharge orders & Medications Prescriptions: New tramadol 50 mg tablet 50 mg PO Q8H PRN (Reason: pain) Qty: 14 0RF Continued allopurinol 100 mg tablet 100 tab PO Q OTHER DAY levothyroxine [Synthroid] 75 mcg tablet 75 tab PO DAILY fenofibrate nanocrystallized [Tricor] 48 mg tablet 40 tab PO DAILY dexlansoprazole [Dexilant] 60 mg Capsule,Biphase Delayed Releas 60 mg PO DAILY Follow up/Referrals: Kandace Groves MD [Primary Care Provider] - Messi Jennings MD [Physician] - Diet/Activity/Treatments Diet: Diet as Tolerated Activity: Known restrictions beginning in a.m. 03/18/2022. Skin/Wound/Dressing Care Report to your healthcare provider any signs of infection, such as:: chills, fever, night sweats and increased pain Visit Report/Discharge Packet Instructions: Kidney Stones -- Adult, DI for Cystoscopy, DI for Ureteral Stent Placement Stand Alone Forms: Surgery Discharge Discharge Data Primary Care Provider: Kandace Groves
== END 2022-03-17 18:54 | disposition home or self-care (01) | DRG 694 ==
LOC: ED 08:25 → AC 09:08
PROVIDERS: Emergency Medicine; Internal Medicine; Specialist; Admitting Provider Student in an Organized Health Care Education/Training Program; Emergency Provider Emergency Medicine; PCP Internal Medicine; Referring Provider Emergency Medicine; Visit Provider Student in an Organized Health Care Education/Training Program
PROC: 0T9B8ZZ Drainage of Bladder, Via Natural or Artificial Opening Endoscopic (ICD-10-PCS; principal; 2022-03-17 16:30)
DX: N13.2 Hydronephrosis with renal and ureteral calculous obstruction (principal); N23 Unspecified renal colic; N81.10 Cystocele, unspecified; E78.5 Hyperlipidemia, unspecified; K21.9 Gastro-esophageal reflux disease without esophagitis; E03.9 Hypothyroidism, unspecified; Z20.822 Contact with and (suspected) exposure to COVID-19
CPT/HCPCS: 00910; 36415; 52330; 74176; 76000; 80048; 80053; 81003; 81015; 83690; 83735; 84443; 85025; 87086; 87635; 96361; 96374; 96375; 96376; 99222; 99284; C1771; C9803; G0378; J0131; J0744; J1170; J1200; J1885; J2250; J2270; J2405; J2704; J3010

== ENCOUNTER → 2022-03-27 14:12 | Outpatient (CLI) | payer OTHER, SELFPAY ==
[2022-03-16 10:09] VITALS: BMI 21.9
--- NOTE | 2022-03-27 | DI.MRI.S_ITS ---
PROCEDURE: MR LUMBAR SPINE WO CON INDICATIONS: SPINAL STENOSIS OF LUMBAR REGION TECHNIQUE: Noncontrast sagittal T1 spin echo and T2 fast echo, sagittal STIR, and T2 fast spin echo through the lumbar spine. In cases with scoliosis, additional coronal T2 fast spin echo may be performed. COMPARISON: Located [facility], MR, MR LUMBAR SPINE WO CON, 12/22/2020, 11:55. FINDINGS: Image quality: Excellent. Alignment and Curvature: No spondylolisthesis. Bone Marrow: No significant height loss. No suspicious osseous lesions. Spinal Cord: Normal appearance of the cauda equina nerve roots. The conus terminates at L1, which is normal. Paraspinous Soft Tissues: No paravertebral masses. Rudimentary S1-S2 disc. T12-L1: No stenosis. L1-L2: Minimal facet arthropathy. No stenosis. L2-L3: Mild facet arthropathy. No stenosis. L3-L4: Mild facet arthropathy. No stenosis. L4-L5: Moderate facet arthropathy. Moderate right and mild left narrowing of the subarticular recesses, with mild to moderate overall central narrowing. There is a diffuse disc bulge at this level. L5-S1: Ligamentum flavum hypertrophy, diffuse disc bulge, with the paracentral protrusion slightly asymmetric to the left. Moderate facet arthropathy. Severe left subarticular recess narrowing and moderate right subarticular recess narrowing, with moderate overall effacement of the thecal sac. There is also epidural lipomatosis at this level. IMPRESSION: Lower lumbar moderate to severe spondylotic findings as above, in particular likely affecting the traversing right L5 nerve root at L4-L5 and traversing bilateral S1 nerve roots at L5-S1, particularly on the left. Findings were also noted in 12/22/2020 MRI. Dictated by: Jaison Leigh M.D. on 03/27/2022 at 16:24 Approved by: Jaison Leigh M.D. on 03/27/2022 at 16:34
[2022-03-27 15:26] LABS: Calcium 9.7 mg/dL (8.4-10.2); Uric Acid 2.9 mg/dL (2.5-6.2)
--- NOTE | 2022-03-27 15:35 | DI.RAD.S_ITS ---
PROCEDURE: XR KUB INDICATIONS: Kidney stones TECHNIQUE: One view of the abdomen acquired. COMPARISON: None. FINDINGS: Surgical changes and devices: None. Bowel: Bowel gas pattern is normal. Increased stool is seen consistent with constipation. Soft tissues: No suspicious abdominal calcifications. Visualized solid organ contours appear normal in size. No nephroureterolithiasis. Bones: No suspicious bony lesions. IMPRESSION: 1. No nephroureterolithiasis. 2. Constipation. Dictated by: Thai Bryan M.D. on 03/27/2022 at 16:24 Approved by: Thai Bryan M.D. on 03/27/2022 at 16:25
[2022-03-28 08:36] LABS: Calcium 9.6 mg/dL (8.7-10.3); Parathyroid Hormone, Intact 16 pg/mL (15-65)
== END ==
PROVIDERS: Specialist; PCP Internal Medicine; Referring Provider Physical Medicine & Rehabilitation; Visit Provider Physical Medicine & Rehabilitation
DX: N20.0 Calculus of kidney (principal); K59.00 Constipation, unspecified; M48.061 Spinal stenosis, lumbar region without neurogenic claudication; M47.816 Spondylosis without myelopathy or radiculopathy, lumbar region; M47.817 Spondylosis without myelopathy or radiculopathy, lumbosacral region
CPT/HCPCS: 36415; 72148; 74018; 82310; 83970; 84550

== ENCOUNTER → 2022-06-27 12:59 | Outpatient (CLI) | payer OTHER, SELFPAY ==
[2022-03-16 10:09] VITALS: BMI 21.9
--- NOTE | 2022-06-27 | DI.MG.S_ITS ---
BILATERAL DIGITAL SCREENING MAMMOGRAM 3D/2D WITH CAD WITH AUGMENTATION: 06/27/2022 CLINICAL: Routine screening. Family history of breast cancer. Comparison is made to exams dated: 06/25/2021 mammogram - [facility], 05/23/2020 mammogram - [facility], and 05/19/2019 mammogram - [facility]. Both breasts are heterogeneously dense, which may obscure small masses (category c / 51-75% glandular tissue). Current study was also evaluated with a Computer Aided Detection (CAD) system. Bilateral breast implants are intact. No significant masses, calcifications, or other findings are seen in either breast. There has been no significant interval change. IMPRESSION: NEGATIVE There is no mammographic evidence of malignancy. A 1 year screening mammogram is recommended. Based on the Tyrer Cuzick model (a risk assessment model) the patient's lifetime risk is 5.8% and her 10 year risk is 2.6%. According to the ACR, ACS, and NCCN guidelines, an annual breast MRI exam along with mammogram is recommended if the patient's lifetime risk is 20% or greater. This exam was interpreted at Station ID: [id number]. NOTE: For mammograms, a report in lay terms will be sent to the patient. Approximately 15% of breast malignancies will not be visualized mammographically. In the management of a palpable breast mass, a negative mammogram must not discourage biopsy of a clinically suspicious lesion. Electronically Signed By: Biju neumann/wei:06/27/2022 13:55:33 letter sent: Normal Exam ACR BI-RADS Category 1: Negative 3341F
== END ==
PROVIDERS: PCP Internal Medicine; Referring Provider Internal Medicine; Visit Provider Internal Medicine
DX: Z12.31 Encounter for screening mammogram for malignant neoplasm of breast (principal); Z80.3 Family history of malignant neoplasm of breast
CPT/HCPCS: 77063; 77067

== ENCOUNTER → 2023-04-29 | Outpatient (CLI) | payer OTHER, SELFPAY ==
[2022-03-16 10:09] VITALS: BMI 21.9
--- NOTE | 2023-04-29 | DI.RAD.S_ITS ---
Bone Density Report Name: FARSHAD DONNELLY Age: 62 Sex: Female Ethnicity: White Date of : 1960 Indication: postmenopausal; screening for osteoporosis; Referring Provider: MONSERRAT WHITAKER Study: Bone densitometry was performed. Exam Date: April 29, 2023 Accession number: [id number] Bone Density: Region BMD T-score Z-score Classification AP Spine(L1-L4) 0.894 -1.4 0.3 Osteopenia Femoral Neck (Left) 0.671 -1.6 -0.1 Osteopenia Total Hip (Left) 0.813 -1.1 0.1 Osteopenia Femoral Neck (Right) 0.640 -1.9 -0.4 Osteopenia Total Hip (Right) 0.773 -1.4 -0.2 Osteopenia Total Hip Mean 0.793 -1.3 -0.1 Osteopenia World Health Organization criteria for BMD impression classify patients as: Normal (T-score at or above -1.0), Osteopenia (T-score between -1.0 and -2.5), or Osteoporosis (T-score at or below -2.5). Impression: The patient has low bone mass, based on the Right Femoral Neck T-score. Discussion: BONE DENSITY IS LOW AT ONE OR MORE SKELETAL SITES. This patient's lowest T-score is low at one or more skeletal sites. It meets the World Health Organization's (WHO) criteria for low bone mass (T-score between -1.0 and -2.5). The patient's 10-year risk of fracture as calculated by FRAX is less than the threshold where pharmacological therapy is recommended by the National Osteoporosis Foundation (NOF). However, all treatment decisions require clinical judgment and consideration of individual patient factors, including patient preferences, comorbidities, previous drug use, risk factors not captured in the FRAX model (e.g., frailty, falls, vitamin D deficiency, increased bone turnover, interval significant decline in bone density) and possible under or overestimation of fracture risk by FRAX. The patient should follow a healthful lifestyle (good nutrition with adequate calcium and vitamin D, and appropriate weight-bearing exercise). Follow-Up: Consider repeating this study in 2 to 3 years to reassess this patient's status, or sooner if there is some new clinical indication. Reported by: DANN MERCHANT MD on 04/29/2023 1:14:00 PM.
--- NOTE | 2023-04-29 12:26 | DI.RAD.S_ITS ---
PROCEDURE: XR KUB INDICATIONS: kidney calculus TECHNIQUE: One view of the abdomen acquired. COMPARISON: [facility], , XR KUB, 03/27/2022, 15:44. FINDINGS: Surgical changes and devices: None. Bowel: Bowel gas pattern is normal. Soft tissues: Punctate calcification projecting over the left renal lower pole. Visualized solid organ contours appear normal in size. Surgical clips bilaterally in the upper pelvis. Cholecystectomy clips. Bones: No suspicious bony lesions. IMPRESSION: 1. Single left lower pole punctate calcification visible. This is stable compared to prior. Dictated by: Hetal Sabillon M.D. on 04/29/2023 at 15:29 Approved by: Hetal Sabillon M.D. on 04/29/2023 at 15:30
== END ==
LOC: RAD 12:26
PROVIDERS: PCP Family Medicine; Referring Provider Specialist; Visit Provider Family Medicine
DX: N20.0 Calculus of kidney (principal); M85.851 Other specified disorders of bone density and structure, right thigh; Z13.820 Encounter for screening for osteoporosis; Z78.0 Asymptomatic menopausal state; Z92.23 Personal history of estrogen therapy; K63.9 Disease of intestine, unspecified
CPT/HCPCS: 74018; 77080

== ENCOUNTER 2023-05-15 06:40 | Day surgery (SDC) | payer OTHER, SELFPAY ==
[2022-03-16 10:09] VITALS: BMI 21.9
[2023-05-15] VITALS (7 sets, daily range): BP systolic 106–138; BP diastolic 67–89; PULSE 56–71; RESP 9–16; TEMP 36.1–36.4; O2SAT 98–100; BMI 21.0
[2023-05-15] MEDS: LACTATED RINGERS 1,000 ML 21 ML IV (07:19)
--- NOTE | 2023-05-15 07:40 | PM.PREOP ---
Pre-operative Note COVID-19 Criteria for continued procedure: Expected advancement of disease process, Possibility delay results in more complex future surgery or treatment, Deterioration of the patient's condition or overall health, Delay expected to result in less-positive ultimate med/surg outcome and Non-surgical alternatives not available or appropriate per current SOC Interval Note History & Physical reviewed/Exam performed by Physician: Yes Changes to H&P: No
--- NOTE | 2023-05-15 07:58 | SUR.OPER ---
Supine on ESWL bed, head on pillow, arms padded at <90 degrees abduction, legs uncrossed
--- NOTE | 2023-05-15 08:33 | P.OP_ITS ---
Operative Date/Time/Diagnoses Date of procedure: 05/15/23 Time of procedure: 08:20 Pre-op diagnosis: 1. Left nephrolithiasis 2. History of colic Post-op diagnosis: same Procedure & Clinicians Procedure: 1. Left extracorporeal lithotripsy (maximal 7.0 x 2000). Same procedure as scheduled: Yes Indications: 1. Left nephrolithiasis 2. History of renal colic Surgeon: Messi Jennings Click Yes if Unassisted: Yes Anesthesia Type: General Operative Notes Findings: Index 5 mm calculus unchanged in position imaging. Closure Type: not applicable Specimen(s): none sent Estimated Blood Loss (mL): 0 Blood products transfused: none Procedure in detail: The patient was positioned in supine administered general anesthesia. The above-described stone was then localized in the X, Y, and Z plane. Lithotripsy was then commenced at minimal power level for 200 shocks. A 2 minute pause was then conducted. Lithotripsy was then resumed and the power level was gradually increased to a maximal 7.0. Stone in his fragments were really localize and monitored as needed throughout the case with fluoroscopy. At 2000 shocks there appeared to be good radiographic evidence of stone comminution. Treatment was halted. The patient was then awakened, transferred to [facility], and then transported to PACU stable condition. Complications: none Post-operative Condition: stable Disposition: PACU Plan for aftercare: Discharge home.
== END 2023-05-15 09:15 | disposition home or self-care (01) ==
PROVIDERS: PCP Family Medicine; Referring Provider Specialist; Visit Provider Specialist
PROC: (CPT 50590; principal; 2023-05-15 07:45)
DX: N20.0 Calculus of kidney (principal)
CPT/HCPCS: 50590; J1100; J2250; J2405; J2704; J3010

== ENCOUNTER → 2023-08-04 10:11 | Outpatient (CLI) | payer OTHER, SELFPAY ==
[2022-03-16 10:09] VITALS: BMI 21.9
--- NOTE | 2023-08-04 10:12 | DI.RAD.S_ITS ---
PROCEDURE: XR KUB INDICATIONS: Renal calculus rt TECHNIQUE: One view of the abdomen acquired. COMPARISON: [facility], CR, XR KUB, 04/29/2023, 12:46. [facility], CR, XR KUB, 03/27/2022, 15:44. FINDINGS: Surgical changes and devices: Surgical clips project over the pelvis. Bowel: Bowel gas pattern is normal. Soft tissues: No suspicious abdominal calcifications. Visualized solid organ contours appear normal in size. Bones: No suspicious bony lesions. IMPRESSION: No nephrolithiasis identified. Dictated by: Stephen Sands M.D. on 08/04/2023 at 14:32 Approved by: Stephen Sands M.D. on 08/04/2023 at 14:32
== END ==
PROVIDERS: PCP Family Medicine; Referring Provider Specialist; Visit Provider Specialist
DX: N20.0 Calculus of kidney (principal); Z87.442 Personal history of urinary calculi
CPT/HCPCS: 74018

== ENCOUNTER → 2023-08-10 11:21 | Outpatient (CLI) | payer OTHER, SELFPAY ==
[2022-03-16 10:09] VITALS: BMI 21.9
--- NOTE | 2023-08-10 11:22 | DI.MG.S_ITS ---
BILATERAL DIGITAL SCREENING MAMMOGRAM 3D/2D WITH CAD: 08/10/2023 CLINICAL: Routine screening. Family history of breast cancer. Comparison is made to exams dated: 06/27/2022 mammogram - [facility], 05/23/2020 mammogram - [facility], and 06/25/2021 mammogram - [facility]. Both breasts are heterogeneously dense, which may obscure small masses (category c / 51-75% glandular tissue). Current study was also evaluated with a Computer Aided Detection (CAD) system. There are benign post operative findings in both breasts. No significant masses, calcifications, or other findings are seen in either breast. There has been no significant interval change. IMPRESSION: BENIGN There is no mammographic evidence of malignancy. A 1 year screening mammogram is recommended. Based on the Tyrer Cuzick model (a risk assessment model) the patient's lifetime risk is 5.6% and her 10 year risk is 2.6%. According to the ACR, ACS, and NCCN guidelines, an annual breast MRI exam along with mammogram is recommended if the patient's lifetime risk is 20% or greater. This exam was interpreted at Station ID: [id number]. NOTE: For mammograms, a report in lay terms will be sent to the patient. Approximately 15% of breast malignancies will not be visualized mammographically. In the management of a palpable breast mass, a negative mammogram must not discourage biopsy of a clinically suspicious lesion. Electronically Signed By: Eleanor ferreira/wei:08/10/2023 16:04:27 letter sent: Normal Exam ACR BI-RADS Category 2: Benign Finding(s) 3342F
== END ==
PROVIDERS: PCP Family Medicine; Referring Provider Family Medicine; Visit Provider Family Medicine
DX: Z12.31 Encounter for screening mammogram for malignant neoplasm of breast (principal); Z80.3 Family history of malignant neoplasm of breast
CPT/HCPCS: 77063; 77067

== ENCOUNTER → 2024-02-04 10:14 | Outpatient (CLI) | payer MEDICARE, OTHER, SELFPAY ==
[2022-03-16 10:09] VITALS: BMI 21.9
--- NOTE | 2024-02-04 10:17 | DI.MRI.S_ITS ---
PROCEDURE: MR LUMBAR SPINE WO CON INDICATIONS: Low back pain TECHNIQUE: Noncontrast sagittal T1 spin echo and T2 fast echo, sagittal STIR, and T2 fast spin echo through the lumbar spine. In cases with scoliosis, additional coronal T2 fast spin echo may be performed. COMPARISON: [facility], MR, MR LUMBAR SPINE WO CON, 03/27/2022, 15:00. FINDINGS: Image quality: Excellent. Alignment and Curvature: There is normal bony alignment. Bone Marrow: Marrow is of normal overall signal. No acute vertebral body compression fractures. Spinal Cord: Conus medullaris terminates at the L1 level. Visualized cord demonstrates normal signal and size. Paraspinous Soft Tissues: No paravertebral masses. T12-L1: Normal appearance. L1-L2: Normal appearance. L2-L3: Normal appearance. L3-L4: Normal appearance. L4-L5: Disc bulge with arthropathy. Moderate central stenosis mild bilateral foraminal stenosis L5-S1: Disc bulge with arthropathy. Severe central stenosis. No foraminal stenosis. IMPRESSION: Multilevel degenerative disc disease and arthropathy results in varying degrees of central and foraminal stenosis including severe central stenosis L5-S1 Approved by: Farhad Joseph M.D. on 02/04/2024 at 18:08
== END ==
PROVIDERS: Referring Provider Physician Assistant; Visit Provider Physician Assistant
DX: M51.37 Other intervertebral disc degeneration, lumbosacral region (principal); M51.36 Other intervertebral disc degeneration, lumbar region; M47.816 Spondylosis without myelopathy or radiculopathy, lumbar region; M47.817 Spondylosis without myelopathy or radiculopathy, lumbosacral region; M48.061 Spinal stenosis, lumbar region without neurogenic claudication; M48.07 Spinal stenosis, lumbosacral region; M54.50 Low back pain, unspecified
CPT/HCPCS: 72148

== ENCOUNTER → 2024-07-05 10:11 | Outpatient (CLI) | payer MEDICARE, OTHER, SELFPAY ==
[2022-03-16 10:09] VITALS: BMI 21.9
--- NOTE | 2024-07-05 10:12 | DI.RAD.S_ITS ---
PROCEDURE: XR KUB INDICATIONS: HX of nephrolithiasis TECHNIQUE: One view of the abdomen acquired. COMPARISON: [facility], CT, CT KIDNEY URETER BLADDER (KUB), 03/16/2022, 2:17. [facility], CR, XR KUB, 08/04/2023, 10:14. [facility], CR, XR KUB, 04/29/2023, 12:46. FINDINGS: Surgical changes and devices: Cholecystectomy clips. Clips in the bilateral pelvis. Bowel: Bowel gas pattern is normal. Soft tissues: No kidney stones identified. No suspicious abdominal calcifications. Visualized solid organ contours appear normal in size. Lung bases are clear. Bones: No suspicious bony lesions. IMPRESSION: No kidney stones identified. CT KUB could be considered for further evaluation Dictated by: Biju Gagnon M.D. on 07/05/2024 at 14:34 Approved by: Biju Gagnon M.D. on 07/05/2024 at 14:37
[2024-07-05 12:05] LABS: Appearance Urine UA CLEAR; Bilirubin Urine UA NEGATIVE (NEGATIVE); Color Urine UA YELLOW; Glucose Urine UA NEGATIVE (Negative); Ketones Urine UA NEGATIVE (NEGATIVE); Leukocyte Esterase Urine UA 1+ (NEGATIVE); Nitrite Urine UA NEGATIVE (Negative); Occult Blood Urine UA NEGATIVE (Negative); Protein Urine UA NEGATIVE (Negative); Urobilinogen Urine UA 0.2 E.U./dL (0.2)
[2024-07-05 12:06] LABS: pH Urine UA 6.5 (4.5-8.0)
[2024-07-05 12:19] LABS: Bacteria Urine Occasional (0-1); Culture Indicated Urine Specimen Cultured; RBC Urine 0-1/HPF (0-5/HPF); Squamous Epithelial Cell Urine None Seen (0-5/HPF); Urine Volume 10mL (spun); WBC Urine 0-1/HPF (0-5/HPF)
== END ==
PROVIDERS: Referring Provider Urology; Visit Provider Urology
DX: R10.30 Lower abdominal pain, unspecified (principal); N20.0 Calculus of kidney; R35.0 Frequency of micturition; R39.9 Unspecified symptoms and signs involving the genitourinary system; Z87.442 Personal history of urinary calculi
CPT/HCPCS: 51798; 74018; 81001; 81002; 87086; 99213

== ENCOUNTER 2024-07-09 11:00 | Emergency (ER) | payer MEDICARE, OTHER, SELFPAY ==
[2022-03-16 10:09] VITALS: BMI 21.9
[2024-07-09] VITALS (9 sets, daily range): BP systolic 99–119; BP diastolic 52–58; PULSE 60–75; RESP 16–18; TEMP 36.1–36.6; O2SAT 94–99; BMI 20.3
--- NOTE | 2024-07-09 11:22 | EKG_ITS ---
[address] [address] Test Date: 2024-07-09 Pat Name: Freddy Broussard Department: [facility] Room: Gender: Female Car Repairer: JANET : 1960 Requested By: Order Number: [id number] Reading MD: Ricardo Alexander Measurements Intervals [place] Rate: 66 P: 37 FL: 176 QRS: 41 QRSD: 76 T: 46 QT: 408 QTc: 427 Interpretive Statements Normal sinus rhythm Electronically Signed On 07-12-2024 18:49:43 PST by Ricardo Alexander
[2024-07-09 11:58] LABS: Add Manual Diff / Slide Review NO; Basophils Absolute Auto 100 /uL (0-100); Eosinophils Absolute Auto 100 /uL (0-450); Eosinophils Percent Auto 1.1 % (2-4); Hematocrit 40.5 % (36-46); Hemoglobin 13.5 g/dL (12.0-16.0); Lymphocytes Absolute Auto 2000 /uL (1100-4500); Lymphocytes Percent Auto 35.1 % (25-40); Mean Corpuscular HGB Conc 33.3 % (30-36); Mean Corpuscular Hemoglobin 31.6 PG (26-34); Mean Corpuscular Volume 94.9 fL (80-100); Monocytes Absolute Auto 300 /uL (0-900); Monocytes Percent Auto 6.1 % (3-14); Neutrophils Absolute Auto 3200 /uL (1500-7000); Neutrophils Percent Auto 56.7 % (50-75); Platelet Count 267 X10^3/uL (150-400); Red Blood Cell Count 4.27 X10^6/uL (4.0-5.2); Red Cell Distribution Width 13.6 % (11.6-14.8); White Blood Cell Count 5.6 X10^3/uL (4.5-11.0)
[2024-07-09 12:07] LABS: Alanine Aminotransferase 17 IU/L (<35); Albumin 4.4 g/dL (3.5-5.0); Albumin Globulin Ratio 1.6 (1.0-2.8); Alkaline Phosphatase 59 U/L (38-126); Aspartate Aminotransferase 23 IU/L (14-36); BUN Creatinine Ratio 44.9 (6-22); Bilirubin Total 0.4 mg/dL (0.2-1.3); Blood Urea Nitrogen 22 mg/dL (7-17); Calcium 9.5 mg/dL (8.4-10.2); Carbon Dioxide 22 mmol/L (22-32); Chloride 107 mmol/L (98-107); Estimated Glomerular Filt Rate > 60 mL/min (>60); Globulin 2.7 g/dL (1.7-4.1); Glucose 137 mg/dL (80-110); HEMOLYSIS 25 (0-50); Lipase 166 U/L (23-300); Potassium 4.4 mmol/L (3.4-5.1); Sodium 137 mmol/L (137-145); Total Protein 7.1 g/dL (6.3-8.2)
--- NOTE | 2024-07-09 12:46 | ED.ABDPAIN ---
HPI - Abdominal Pain General Chief Complaint: Abdominal Pain Stated Complaint: abd pain Time Seen by Provider: 07/09/24 11:59 Source: patient Mode of arrival: Ambulatory History of Present Illness HPI narrative: Patient is a 63-year-old female history of appendectomy cholecystectomy presenting today with epigastric abdominal pain ongoing for about 1 week. She has decreased appetite she is still able to eat and drink. Minimal nausea vomiting no significant changes in bowel habits. No real back pain or flank pain. She does have a history of kidney stones. No painful frequent urination or fevers. However pain has been ongoing. Related Data Home Medications Medication Instructions Recorded Confirmed allopurinol 100 mg tablet 100 tab PO Q OTHER DAY 03/16/22 08/04/23 dexlansoprazole 60 mg 60 mg PO DAILY 03/16/22 08/04/23 capsule,biphase delayed release (Dexilant) fenofibrate nanocrystallized 48 mg 40 tab PO DAILY 03/16/22 08/04/23 tablet (Tricor) levothyroxine 75 mcg tablet 75 tab PO DAILY 03/16/22 08/04/23 (Synthroid) Previous Rx's Medication Instructions Recorded hydrochlorothiazide 25 mg tablet 25 mg PO DAILY #90 tabs 05/12/23 tramadol 50 mg tablet 50 mg PO Q4H PRN pain #10 tabs 05/15/23 hydrocodone 5 mg-acetaminophen 325 1 tab PO Q6H PRN pain #10 tabs 07/09/24 mg tablet ondansetron 4 mg disintegrating 4 mg PO Q8H PRN nausea and 07/09/24 tablet vomiting #10 tabs Allergies Allergy/AdvReac Type Severity Reaction Status Date / Time Penicillins Allergy Confusion, Verified 07/09/24 11:10 rash codeine AdvReac Stomach Verified 07/09/24 11:10 pain Patient History Medical History Left nephrolithiasis History of nephrolithiasis Hx of gastroesophageal reflux (GERD) Renal calculus Surgical History Hx of appendectomy Hx of cholecystectomy Family History Sister Kidney stone Mother Heart disease Cancer Father Parkinson disease Diabetes mellitus Social History marital status: household members: spouse Smoking Status: Never smoker alcohol intake: never substance use type: does not use caffeine: Yes Type(s) of exercise: walking frequency: daily duration: 30-45 minutes/day Smoking Status: Never smoker alcohol intake frequency: holidays/special occasions only Substance Use Type: does not use Exam Initial Vital Signs Initial Vital Signs: Vital Signs Temperature 97.0 F L 07/09/24 11:10 Pulse Rate 75 07/09/24 11:10 Respiratory Rate 18 07/09/24 11:10 Blood Pressure 112/56 L 07/09/24 11:10 Pulse Oximetry 99 07/09/24 11:10 Oxygen Delivery Method Room Air 07/09/24 11:10 GENERAL: Alert 63-year-old female and in [no acute] distress. HEENT: Head atraumatic,EOMI, pupils reactive, face symmetric, [moist] mucous membranes CARDIOVASCULAR: Regular rate and rhythm without murmurs, rubs or gallops. RESPIRATORY: Breath sounds equal bilaterally, no wheezes rales or rhonchi. ABDOMEN: Soft, minimal epigastric pain no distention Normoactive bowel sounds all 4 quadrants. No guarding or rebound. : No CVA tenderness EXTREMITIES: Normal range of motion, no clubbing or edema. Neurovascularly intact NEUROLOGICAL: Alert and oriented x4.Normal gait and speech. Cranial nerves II through XII grossly intact. SKIN: Warm, dry, no laceration, no petechiae, no rashes or lesions. Course Orders Ordered: ED Orders 07/09/24 11:14 EKG-12 Lead Stat 07/09/24 11:50 Complete Blood Count AUTO DIFF Stat Comprehensive Metabolic Panel Stat Lipase Stat 07/09/24 13:10 CT abdomen pelvis w con Stat Discontinued Medications Ketorolac Tromethamine (Ketorolac 30 Mg/Ml Vial) 15 mg IV NOW ONE Stop: 07/09/24 13:11 Last Admin: 07/09/24 13:23 Dose: 15 mg Documented By: LUCAS Ondansetron HCl (Ondansetron 4 Mg/2 Ml Inj) 4 mg IV NOW PRN PRN Reason: Nausea And Vomiting Ondansetron HCl (Ondansetron 4 Mg Odt) 4 mg PO NOW PRN PRN Reason: Nausea And Vomiting Vital Signs Vital signs: Vital Signs - 8 hr 07/09/24 11:10 07/09/24 11:24 07/09/24 11:24 Temperature 97.0 F L Pulse Rate 75 66 Respiratory Rate 18 Blood Pressure 112/56 L 119/56 L Pulse Oximetry 99 97 Oxygen Delivery Method Room Air 07/09/24 11:30 07/09/24 11:30 07/09/24 12:00 Temperature Pulse Rate 63 63 Respiratory Rate Blood Pressure 104/55 L 99/52 L Pulse Oximetry 97 97 Oxygen Delivery Method 07/09/24 12:30 07/09/24 13:00 07/09/24 15:02 Temperature Pulse Rate 60 65 64 Respiratory Rate 16 Blood Pressure 105/56 L 115/58 L Pulse Oximetry 96 97 94 Oxygen Delivery Method Room Air 07/09/24 15:03 07/09/24 15:03 07/09/24 15:09 Temperature 98 F Pulse Rate 62 68 Respiratory Rate 17 Blood Pressure 114/56 L 114/56 L Pulse Oximetry 97 95 Oxygen Delivery Method Room Air MDM - Abdominal Pain Lab Data 07/09/24 11:50 07/09/24 11:50 Labs: Lab Results 07/09/24 Range/Units 11:50 WBC 5.6 (4.5-11.0) X10^3/uL RBC 4.27 (4.0-5.2) X10^6/uL Hgb 13.5 (12.0-16.0) g/dL Hct 40.5 (36-46) % MCV 94.9 (80-100) fL MCH 31.6 (26-34) PG MCHC 33.3 (30-36) % RDW 13.6 (11.6-14.8) % Plt Count 267 (150-400) X10^3/uL Neut % (Auto) 56.7 (50-75) % Lymph % (Auto) 35.1 (25-40) % Luna % (Auto) 6.1 (3-14) % Eos % (Auto) 1.1 L (2-4) % Baso % (Auto) 1.0 (0-2) % Neut # (Auto) 3200 (5342-5866) /uL Lymph # (Auto) 2000 (1043-0389) /uL Luna # (Auto) 300 (0-900) /uL Eos # (Auto) 100 (0-450) /uL Baso # (Auto) 100 (0-100) /uL Sodium 137 (137-145) mmol/L Potassium 4.4 (3.4-5.1) mmol/L Chloride 107 (98-107) mmol/L Carbon Dioxide 22 (22-32) mmol/L BUN 22 H (7-17) mg/dL Creatinine 0.49 L (0.52-1.04) mg/dL Estimated GFR > 60 (>60) mL/min BUN/Creatinine Ratio 44.9 H (6-22) Glucose 137 H (80-110) mg/dL Calcium 9.5 (8.4-10.2) mg/dL Total Bilirubin 0.4 (0.2-1.3) mg/dL AST 23 (14-36) IU/L ALT 17 (<35) IU/L Alkaline Phosphatase 59 (38-126) U/L Total Protein 7.1 (6.3-8.2) g/dL Albumin 4.4 (3.5-5.0) g/dL Globulin 2.7 (1.7-4.1) g/dL Albumin/Globulin Ratio 1.6 (1.0-2.8) Lipase 166 (23-300) U/L Point of care testing: Urine Dip Bedside Urine Glucose Negative Bedside Urine Bilirubin - Negative Bedside Urine Ketone - Negative Urine Specific Benton 1.010 Bedside Urine Occult Blood - Negative Bedside Urine pH 6.0 Bedside Urine Protein - Negative Bedside Urine Urobilinogen - Negative Bedside Urine Nitrite - Negative Bedside Urine Leukocytes - Negative Esterase Imaging Data CT scan - abdomen/pelvis: Radiologist's Impression: PROCEDURE: CT ABDOMEN PELVIS W CON INDICATIONS: epigastric pain TECHNIQUE: After the administration of intravenous contrast, axial sections acquired from the lung bases to the pubic symphysis. Coronal and sagittal reformats were performed. For radiation dose reduction, the following was used: automated exposure control, adjustment of mA and/or kV according to patient size. COMPARISON: [facility], CT, CT ABDOMEN PELVIS W CON, 01/11/2021, 16:11. FINDINGS: Image quality: Diagnostic. Lower Chest: No significant findings. ABDOMEN: Liver: No solid mass. Gallbladder: Status post cholecystectomy. Biliary ducts: Mild biliary duct dilatation likely related to post cholecystectomy status. Pancreas: No ductal dilation. Spleen: Size is within normal limits. Adrenal Glands: No adrenal nodules. Kidneys and Ureters: No hydronephrosis. No solid mass. No complex renal cystic lesion which requires follow up. Multiple punctate non-obstructing calculus at the inferior pole of the right kidney. Suspected punctate left renal calculus at the mid upper pole. Stomach and Bowel: Status post appendectomy. A few diverticula are seen in the colon. Gastric wall appears mildly thickened Peritoneum: No abnormal intraperitoneal fluid. No free air. Ventral Wall: No significant ventral hernia. Abdominal Nodes: No retroperitoneal or mesenteric adenopathy by size criteria. Vessels: Aorta and inferior vena cava are normal in size. PELVIS: Pelvic Organs: Unremarkable. Bladder: No bladder wall thickening, accounting for underdistention. Pelvic Nodes: No enlarged lymph nodes. Miscellaneous: No inguinal hernias are seen. Bones: No aggressive osseous abnormality. IMPRESSION: 1. Mild diffuse gastric wall thickening may be related to underdistention versus gastritis. 2. Small nonobstructing renal calculi. No hydronephrosis. Approved by: Blake Hawthorne M.D. on 07/09/2024 at 14:34 ECG Data Attestation: I personally reviewed and interpreted this ECG as follows: Interpretation: Normal sinus rhythm rate 66 [place] interval 176 QRS [address] changes or T-wave inversions MDM Narrative Medical decision making narrative: Patient is 63-year-old female presents today with epigastric pain ongoing for about 1 week not getting any better still is eating And drinking although appetite is decreased. Blood work has been reviewed. No leukocytosis or anemia BNP does not show any significant electrolyte abnormality BUN 22 creatinine 0.49 no elevated bilirubin or liver enzymes CT does show some mild gastritis At this time recommend supportive care only she is taking [id number] PPIs. Can give her some nausea medication I do not think she needs antibiotics at this time. She reports the pain is so bad she has not really able to function. We discussed opiate pain medication. He does have a reaction to codeine. Will give her some Zofran. Her pain did not much improved after Toradol but she does not have an acute abdomen or peritoneal signs on exam. Discharge Plan Departure Patient Disposition: Home Clinical Impression: Gastritis Instructions: Gastritis Activity Restrictions/Additional Instructions: *You have been diagnosed with gastritis *What to do: At this time I do not think he needs antibiotics take Tylenol as needed for pain. Continue your PPI *Continue to take medications as directed Zofran 4 mg every 8 hours if needed for nausea or vomiting Cotuit 1 tablet every 6 hours needed for severe pain (I do recommend taking nausea medication prior to pain pill) *Follow up with your primary care provider in 2-3 days or call [phone] *Return to ER if you should have increasing pain black stool nausea vomiting [or] any new, worsening or concerning symptoms CONTROLLED SUBSTANCE DISCHARGE (Narcotoic/benzodiazepine/Flexeril/Phenergan) 1. You have been prescribed narcotic medications, it does have acetaminophen/Tylenol/paracetamol in it, DO NOT TAKE MORE THAN 4,00mg in 24 hours of Tylenol. TRAMADOL DOES NOT CONTAIN TYLENOL 2. Please understand that we cannot provide further refills of narcotics, benzodiazepines or controlled substances through the ED and her pain management will need to be through your provider. 3. While on these medications you cannot drive or operate heavy machinery. 4. You cannot sign legal documents or perform any duties such as this. 5. As long as you're taking opiate pain medications he should also be taking a stool softener such as Colace, Dulcolax, MiraLAX or prune juice, to help avoid constipation. Prescriptions: New hydrocodone-acetaminophen 5-325 mg tablet 1 tab PO Q6H PRN (Reason: pain) Qty: 10 0RF ondansetron 4 mg tablet,disintegrating 4 mg PO Q8H PRN (Reason: nausea and vomiting) Qty: 10 0RF No Action allopurinol 100 mg tablet 100 tab PO Q OTHER DAY levothyroxine [Synthroid] 75 mcg tablet 75 tab PO DAILY fenofibrate nanocrystallized [Tricor] 48 mg tablet 40 tab PO DAILY dexlansoprazole [Dexilant] 60 mg Capsule,Biphase Delayed Releas 60 mg PO DAILY tramadol 50 mg tablet 50 mg PO Q4H PRN (Reason: pain) Qty: 10 0RF Rx Instructions: Take 1-2 acetaminophen with each tablet of tramadol needed. hydrochlorothiazide 25 mg tablet 25 mg PO DAILY Qty: 90 3RF Referrals: Miscellaneous,Doctor, MD [Primary Care Provider] - Stand Alone Forms: Patient Portal/API/Survey
--- NOTE | 2024-07-09 13:10 | DI.CT.S_ITS ---
PROCEDURE: CT ABDOMEN PELVIS W CON INDICATIONS: epigastric pain TECHNIQUE: After the administration of intravenous contrast, axial sections acquired from the lung bases to the pubic symphysis. Coronal and sagittal reformats were performed. For radiation dose reduction, the following was used: automated exposure control, adjustment of mA and/or kV according to patient size. COMPARISON: [facility], CT, CT ABDOMEN PELVIS W CON, 01/11/2021, 16:11. FINDINGS: Image quality: Diagnostic. Lower Chest: No significant findings. ABDOMEN: Liver: No solid mass. Gallbladder: Status post cholecystectomy. Biliary ducts: Mild biliary duct dilatation likely related to post cholecystectomy status. Pancreas: No ductal dilation. Spleen: Size is within normal limits. Adrenal Glands: No adrenal nodules. Kidneys and Ureters: No hydronephrosis. No solid mass. No complex renal cystic lesion which requires follow up. Multiple punctate non-obstructing calculus at the inferior pole of the right kidney. Suspected punctate left renal calculus at the mid upper pole. Stomach and Bowel: Status post appendectomy. A few diverticula are seen in the colon. Gastric wall appears mildly thickened Peritoneum: No abnormal intraperitoneal fluid. No free air. Ventral Wall: No significant ventral hernia. Abdominal Nodes: No retroperitoneal or mesenteric adenopathy by size criteria. Vessels: Aorta and inferior vena cava are normal in size. PELVIS: Pelvic Organs: Unremarkable. Bladder: No bladder wall thickening, accounting for underdistention. Pelvic Nodes: No enlarged lymph nodes. Miscellaneous: No inguinal hernias are seen. Bones: No aggressive osseous abnormality. IMPRESSION: 1. Mild diffuse gastric wall thickening may be related to underdistention versus gastritis. 2. Small nonobstructing renal calculi. No hydronephrosis. Approved by: Blake Hawthorne M.D. on 07/09/2024 at 14:34
[2024-07-09] MEDS: KETOROLAC 30 MG/ML VIAL 15 MG IV (13:23)
== END 2024-07-09 15:10 | disposition home or self-care (01) ==
PROVIDERS: Emergency Provider Emergency Medicine
DX: K29.70 Gastritis, unspecified, without bleeding (principal); R11.2 Nausea with vomiting, unspecified; Z87.442 Personal history of urinary calculi
CPT/HCPCS: 36415; 74177; 80053; 81003; 83690; 85025; 93005; 96374; 99284; J1885; Q9967

== ENCOUNTER → 2024-08-22 14:34 | Outpatient (CLI) | payer MEDICARE, OTHER, SELFPAY ==
[2022-03-16 10:09] VITALS: BMI 21.9
--- NOTE | 2024-08-22 | DI.MG.S_ITS ---
BILATERAL DIGITAL SCREENING MAMMOGRAM 3D/2D WITH CAD: 08/22/2024 CLINICAL: Routine screening. Family history of breast cancer. Comparison is made to exams dated: 08/10/2023 mammogram, 06/27/2022 mammogram, and 06/25/2021 mammogram - [facility]. The breasts are heterogeneously dense, which may obscure small masses (category c / 51-75% glandular tissue). Current study was also evaluated with a Computer Aided Detection (CAD) system. There are benign post operative findings in both breasts. No significant masses, calcifications, or other findings are seen in either breast. There has been no significant interval change. IMPRESSION: BENIGN There is no mammographic evidence of malignancy. A 1 year screening mammogram is recommended. Based on the Tyrer Cuzick model (a risk assessment model) the patient's lifetime risk is 5.4% and her 10 year risk is 2.6%. According to the ACR, ACS, and NCCN guidelines, an annual breast MRI exam along with mammogram is recommended if the patient's lifetime risk is 20% or greater. This exam was interpreted at Station ID: [id number]. NOTE: For mammograms, a report in lay terms will be sent to the patient. Approximately 15% of breast malignancies will not be visualized mammographically. In the management of a palpable breast mass, a negative mammogram must not discourage biopsy of a clinically suspicious lesion. Electronically Signed By: Bakari [email or web address]/wei:08/23/2024 07:52:25 letter sent: Normal Exam ACR BI-RADS Category 2: Benign
== END ==
LOC: MAMMO 14:35
PROVIDERS: Referring Provider Internal Medicine; Visit Provider Internal Medicine
DX: Z12.31 Encounter for screening mammogram for malignant neoplasm of breast (principal); Z80.3 Family history of malignant neoplasm of breast; R92.333 Mammographic heterogeneous density, bilateral breasts
CPT/HCPCS: 77063; 77067

== ENCOUNTER → 2025-06-30 14:58 | Outpatient (CLI) | payer MEDICARE, OTHER, SELFPAY ==
[2022-03-16 10:09] VITALS: BMI 21.9
--- NOTE | 2025-06-30 15:00 | DI.RAD.S_ITS ---
PROCEDURE: XR KUB INDICATIONS: 64 y/o F w/ h/o nephrolithiasis, please eval TECHNIQUE: One view of the abdomen acquired. COMPARISON: [facility], , XR KUB, 07/05/2024, 10:10. FINDINGS: Surgical changes and devices: Surgical clips are seen in bilateral adnexa and in right upper quadrant. Bowel: Bowel gas pattern is nonobstructive. Mild fecal stasis in the colon is seen. No pneumoperitoneum. Soft tissues: No suspicious abdominal calcifications. Visualized solid organ contours appear normal in size. Bones: No suspicious bony lesions. IMPRESSION: No calcified renal stones are seen. No gross free air. Dictated by: Keven Marin M.D. on 06/30/2025 at 15:57 Approved by: Keven Marin M.D. on 06/30/2025 at 16:10
== END ==
PROVIDERS: Referring Provider Urology; Visit Provider Urology
DX: Z09 Encounter for follow-up examination after completed treatment for conditions other than malignant neoplasm (principal); Z87.442 Personal history of urinary calculi
CPT/HCPCS: 74018; 99213